=== PATIENT | female | born 1940 | race Caucasian/White ===

== ENCOUNTER 2017-04-26 19:56 | Inpatient (IN) | payer MEDICARE, OTHER ==
[~2017-04-26 19:56] MED LIST: ISOVUE-370 76%-LOCM 1 ML ONE
[2017-04-26] MEDS ORDERED: Ondansetron ODT 4 MG TAB ONE (20:48)
[2017-04-26 21:23] LABS: #Lymphocytes 0.9 thou/uL (1.20-3.40); #Monocytes 0.9 thou/uL (0.11-0.59); #Neutrophils 17.6 thou/uL (1.40-6.50); %Eosinophils 0.1 % (0.0-10.0); %Lymphocytes 4.5 % (21.0-51.0); %Monocytes 4.7 % (0.0-10.0); Hematocrit 39.3 % (36.0-47.0); Mean Platelet Volume 7.2 fL (7.4-10.4); Red Blood Cell (RBC) Count 4.24 mill/uL (4.20-5.40); White Blood Cell (WBC) Count 19.4 thou/uL (4.8-10.8)
--- NOTE | 2017-04-26 21:26 | RAD ---
SINGLE VIEW OF THE CHEST: 04/26/17 COMPARISON: 07/15/12 HISTORY: Fever with decreased appetite and vomiting. FINDINGS: Single view of the chest shows a normal sized cardiomediastinal silhouette. The patient is status po st sternotomy. The pacemaker is unchanged in position. There is no evidence of consolidation, mass, or pleural effusion. IMPRESSION: No evidence of acute cardiopulmonary disease. POS: [facility]
[2017-04-26] MEDS ORDERED: Acetaminophen 500 MG TAB ONE (21:37)
[2017-04-26 21:38] LABS: Lactic Acid - Sepsis 1.7 mmol/L (0.5-2.2)
[2017-04-26 21:43] LABS: ALT (SGPT) 20 U/L (8-55); AST (SGOT) 22 U/L (5-34); Alkaline Phosphatase 69 U/L (40-150); Anion Gap 15 mmol/L (10-20); BUN (Urea Nitrogen) 24 mg/dL (9.8-20.1); Bilirubin, Total 0.5 mg/dL (0.2-1.2); Calc. Creatinine Clearance 0 mL/min (70-130); Calcium 10.1 mg/dL (7.8-10.44); Carbon Dioxide 24 mmol/L (23-31); Chloride 104 mmol/L (98-107); Estimated GFR-MDRD 47; Protein, Total 6.8 g/dL (6.0-8.3)
[2017-04-26 23:10] LABS: Bilirubin Negative (Negative); Blood, Urine Moderate (Negative); Glucose, Urine (Dipstick) Negative (Negative); Ketone, Urine Negative (Negative); Nitrite Negative (Negative); Protein, Urine (Dipstick) Negative (Neg-Trace); Urobilinogen 0.2 mg/dL (0.2-1.0)
[2017-04-26 23:18] LABS: Bacteria/HPF None Seen HPF (None Seen); Hyaline Casts/LPF 4-6 HYALINE CAST LPF (0-3 Hyaline); RBC/HPF GREATER THAN 50-TNTC HPF (0-3)
[2017-04-26] MEDS ORDERED: Sodium Chloride 0.9% 100 ML ONE (23:22)
[2017-04-26] MEDS ORDERED: Piperacillin/Tazobactam 4.5 GM VIAL ONE (23:22)
--- NOTE | 2017-04-27 00:10 | CT ---
CT OF THE ABDOMEN AND PELVIS WITH CONTRAST 04/26/17 COMPARISON: None HISTORY: Fever. [facility] patient. Patient reports the stomach feels empty. TECHNIQUE: Multiple contiguous axial images were obtained in a CT of the abdomen and pelvis with contrast. Lauren nal reformats were performed. FINDINGS: The liver, gallbladder, kidneys, adrenal glands, spleen, and pancreas are unremarkable. No free air, free fluid, or standing changes are seen in the abdomen or pelvis. The patient is status post hysterectomy. There are scattered diverticula in the colon. The small bow el is unremarkable. The appendix is normal. There is a moderate hiatal hernia. No abdominal or pelvi c lymphadenopathy are present. There are large varices in the pelvic region extending from one common femoral vein to the other. Th is suggests thrombus of one of the common femoral veins with collateral flow around the obstruction. The left common iliac vein and external iliac vein are very small in caliber compared to the right. This could be sequela from May-Thurner syndrome. Degenerative changes and postsurgical changes are seen in the spine. The visualized inferior thorax and abdominal wall soft tissues are unremarkable. IMPRESSION: 1. No evidence of acute intra-abdominal/pelvic abnormality. 2. Diverticulosis. 3. Hiatal hernia. 4. 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 This may be secondary to May-Thurner syndrome. POS: [facility]
[2017-04-27] MEDS ORDERED: HumaLOG 300 UNITS/3 ML VIAL SC PRN (02:17)
[2017-04-27] MEDS ORDERED: Dextrose 50% Abboject 50 ML SYRINGE SLOW IVP PRN (02:17)
[2017-04-27] MEDS ORDERED: Dextrose 5% in Water 1,000 ML IV PRN (02:17)
[2017-04-27] MEDS ORDERED: Acetaminophen 325 MG TAB PO PRN (02:17)
[2017-04-27 02:23] VITALS: BMI 28.0
[2017-04-27] MEDS: Sodium Chloride 0.9% 1,000 ML IV SCH (03:55)
[2017-04-27] MEDS: metroNIDAZOLE 500 MG in Premix Bag 1 BAG IVPB SCH ×3 (05:11→23:08)
[2017-04-27] MEDS ORDERED: Pramipexole Di-HCl 0.125 MG TAB PO SCH (06:00)
[2017-04-27 07:01] LABS: Anion Gap 13 mmol/L (10-20); BUN (Urea Nitrogen) 22 mg/dL (9.8-20.1); Calc. Creatinine Clearance 50 mL/min (70-130); Calcium 9.3 mg/dL (7.8-10.44); Carbon Dioxide 24 mmol/L (23-31); Chloride 107 mmol/L (98-107); Estimated GFR-MDRD 51
[2017-04-27 07:15] LABS: #Lymphocytes 1.3 thou/uL (1.20-3.40); #Neutrophils 13.7 thou/uL (1.40-6.50); %Basophils 0.2 % (0.0-1.0); %Eosinophils 0.1 % (0.0-10.0); %Lymphocytes 8.2 % (21.0-51.0); %Monocytes 5.9 % (0.0-10.0); Hematocrit 31.8 % (36.0-47.0); Mean Platelet Volume 8.1 fL (7.4-10.4)
[2017-04-27] MEDS: Famotidine 20 MG TAB PO SCH (08:48)
[2017-04-27] MEDS: Carvedilol 6.25 MG TAB PO SCH ×2 (08:48→18:37)
[2017-04-27] MEDS: Rivaroxaban 10 MG TAB PO SCH (08:54)
--- NOTE | 2017-04-27 10:14 | PDOC.PN ---
- Subjective Encounter Start Date: 04/27/17 Encounter Start Time: 15:00 Subjective: c/o nausea.. - Objective Resuscitation Status: Resuscitation Status FULL:Full Resuscitation Alert, confused, demented. Vital Signs & Weight: Vital Signs (12 hours) Temp Pulse Resp BP BP Pulse Ox 04/27/17 08:48 107/57 L 04/27/17 07:59 98.6 F 74 17 107/52 L 94 L 04/27/17 04:00 97.9 F 83 18 96/47 L 94 L 04/27/17 02:20 96.8 F L 86 20 94 L I&O: 04/26/17 04/27/17 04/28/17 06:59 06:59 06:59 Intake Total 412 Output Total 300 Balance 112 Result Diagrams: 04/27/17 05:54 04/27/17 05:54 Additional Labs: Accuchecks 04/27/17 05:54 POC Glucose 109 Phys Exam - Physical Examination HEENT: PERRLA Neck: no JVD Respiratory: clear to auscultation bilateral Cardiovascular: RRR Gastrointestinal: soft, non-tender Musculoskeletal: no edema Dx/Plan (1) Gastroenteritis Code(s): K52.9 - NONINFECTIVE GASTROENTERITIS AND COLITIS, UNSPECIFIED Status : Acute Plan: On Metronidazole, levaquin. No diarrhea so far today. Follow stools C. dif, cultures... (2) Fever Code(s): R50.9 - FEVER, UNSPECIFIED Status: Acute Plan: continue antibiotics. f/u BxC Comment: Secondary to gastroenteritis. (3) Dementia Code(s): F03.90 - UNSPECIFIED DEMENTIA WITHOUT BEHAVIORAL DISTURBANCE Status: Acute (4) Leucocytosis Code(s): D72.829 - ELEVATED WHITE BLOOD CELL COUNT, UNSPECIFIED Status: Acute Plan: f/u cbc & diff Comment: WBC coming down - Plan continue antibiotics. -: f/u cultures. * .
--- NOTE | 2017-04-27 10:22 | HP ---
PRIMARY CARE PHYSICIAN: Dr. Reyna. CHIEF COMPLAINT: Vomiting, weakness, and confusion. HISTORY OF PRESENT ILLNESS: Ms. Gutierrez is a pleasant 76-year-old female, who was brought in by tere sawant due to generalized weakness, vomiting, and diarrhea, and confusion. The history is taken from t he patient's daughter, who is at the bedside as the patient has some degree of dementia and is unabl e to give me any additional history. Ms. Gutierrez is lives at home with her and on yesterday , they noticed that she had a little bit of diarrhea. There was no blood in the stool. They did no t find this unusual as she sometimes has this off and on; however, the next day she began vomiting a few times. She was having chills. She was extremely weak and having difficulty getting up. She a lso seemed more confused than usual and also had a high fever and a temperature of 102. Her daughte r also says she was complaining of some abdominal discomfort as well and for this reason, she mayo t her to the emergency room. She was found to have a white count of 19.4. CT scan showed no signif icant changes nor did her chest x-ray and she is being admitted for the fever, leukocytosis, and GI symptoms. The patient also has had a decrease in her appetite as well as some congestion, and cough , but otherwise no other complaints. REVIEW OF SYSTEMS: Essentially unobtainable due to the patient's dementia. PAST MEDICAL HISTORY: Significant for hypertension, coronary artery disease, diabetes mellitus, hyp erlipidemia, deep vein thrombosis on Xarelto, as well as dementia. The patient's daughter questions the previous diagnosis of stroke. PAST SURGICAL HISTORY: She has had the bypass surgery 4-vessel, as well as a hysterectomy. ALLERGIES: CODEINE, HYDROCODONE, and STATINS. SOCIAL HISTORY: She is . She had 4 children; one , a son due to kidney failure of unkno wn etiology. She lives at home with her . CODE STATUS: FULL CODE. FAMILY HISTORY: Significant for coronary artery disease in her brother and diabetes as well as kidn ey disease. MEDICATIONS: Include carvedilol 6.25 mg twice a day, Lasix 40 mg twice daily, Tarceva 20 mcg daily, Victoza 18 mcg daily, hydroxyzine 25 mg 1 tablet 2-3 times a day as needed, alprazolam 0.25 mg q.6 hours as needed, enalapril 2.5 mg daily, donepezil 5 mg daily, pramipexole 0.125 mg at bedtime, and Xarelto 20 mg daily. PHYSICAL EXAMINATION: GENERAL: She is alert and oriented. She appears to be in no acute distress and she is very nontoxi c in appearance. She is sitting up, talking and even making some jokes. VITAL SIGNS: Her blood pressure was 144/67, heart rate of 100, respiratory rate of 18, temperature was 102.6. HEENT: Pupils are equal, round, and reactive. Extraocular muscles are intact. Her sclerae are ani cteric. Throat: There is no erythema, no exudates. NECK: No adenopathy, no bruits. LUNGS: Clear to auscultation. There was no wheezing, no rales. CARDIOVASCULAR: She has a normal S1 and S2. There is no S3 or S4. No murmurs, clicks, no rubs. ABDOMEN: Soft, obese. There is some mild left quadrant as well as mid abdominal discomfort, but ve ry mild. No rebound or guarding. EXTREMITIES: There is no edema. She did have some mild erythema in the left lower extremity as wel l as a little bit of warmth. NEUROLOGIC: The exam is nonfocal. LABORATORY RESULTS: White blood cell count is 19.4, hemoglobin 13.2, hematocrit is 39.3, platelet c ount is 139. Sodium 139, potassium 4.0, chloride is 104, CO2 is 24, BUN of 24, creatinine 1.13, glu cose is 115. Urinalysis was significant for moderate blood and greater than 50 rbc's per high power field, no bacteria were seen, nitrite negative. ASSESSMENT AND PLAN: This is a 76-year-old female that presents with diarrhea and vomiting as well as some mild abdominal pain. She also has a leukocytosis and fever. I suspect this is an infectiou s gastroenteritis. She appears nontoxic. She is sitting up, smiling on the stretcher and talkative , I suspect talking on the stretcher. She will be admitted and started on IV fluids as well as cipr ofloxacin and Flagyl. Cultures were done in the emergency room and I suspect that her symptoms shou ld resolve within the next 24 to 48 hours and hopefully she can be discharged home. We will follow up on culture. Continue her Xarelto for her deep vein thrombosis. However, we will be holding enal cindy and her Lasix due to some mild acute kidney injury and we will be placing her on the sliding s kajal for her diabetes.
[2017-04-27] MEDS ORDERED: Milk Of Magnesia 30 ML UDCUP PO PRN (10:46)
[2017-04-27] MEDS: Lorazepam 0.5 MG TAB PO PRN ×2 (19:40→23:59)
[2017-04-27] MEDS: Pramipexole Di-HCl 0.125 MG TAB PO SCH (23:08)
[2017-04-28] MEDS: Sodium Chloride 0.9% 1,000 ML IV SCH ×3 (00:08→21:03)
[2017-04-28 05:33] LABS: #Eosinphils 0.1 thou/uL (0.0-0.7); #Lymphocytes 1.5 thou/uL (1.20-3.40); #Monocytes 0.7 thou/uL (0.11-0.59); #Neutrophils 5.4 thou/uL (1.40-6.50); %Basophils 0.5 % (0.0-1.0); %Eosinophils 1.8 % (0.0-10.0); %Lymphocytes 19.7 % (21.0-51.0); %Monocytes 8.6 % (0.0-10.0); Hematocrit 33.3 % (36.0-47.0); Mean Platelet Volume 7.9 fL (7.4-10.4); Red Blood Cell (RBC) Count 3.49 mill/uL (4.20-5.40); White Blood Cell (WBC) Count 7.8 thou/uL (4.8-10.8)
[2017-04-28] MEDS: metroNIDAZOLE 500 MG in Premix Bag 1 BAG IVPB SCH ×3 (06:32→20:59)
[2017-04-28] MEDS: Lorazepam 0.5 MG TAB PO PRN ×3 (06:33→20:57)
[2017-04-28] MEDS: Famotidine 20 MG TAB PO SCH (09:20)
[2017-04-28] MEDS: Carvedilol 6.25 MG TAB PO SCH ×2 (09:20→16:22)
[2017-04-28] MEDS: Rivaroxaban 10 MG TAB PO SCH (10:04)
--- NOTE | 2017-04-28 12:59 | PDOC.PN ---
- Subjective Encounter Start Date: 04/28/17 Encounter Start Time: 08:00 Pt seen for followup re: diarrhea. Reports ongoing diarrhea. No nausea, vomiting or fevers. - Objective Resuscitation Status: Resuscitation Status FULL:Full Resuscitation MAR Reviewed: Yes Vital Signs & Weight: Vital Signs (12 hours) Temp Pulse Resp BP BP BP Pulse Ox 04/28/17 11:30 98.1 F 80 20 127/58 L 94 L 04/28/17 10:14 98.4 F 75 20 96 04/28/17 09:20 131/58 L 04/28/17 09:16 98.4 F 75 20 131/58 L 96 04/28/17 07:45 98.0 F 78 18 124/58 L 95 04/28/17 04:00 97.2 F L 74 18 133/61 94 L I&O: 04/27/17 04/28/17 04/29/17 06:59 06:59 06:59 Intake Total 412 1374 2358 Output Total 300 1656 Balance 112 1374 702 Result Diagrams: 04/28/17 04:32 04/27/17 05:54 Additional Labs: Accuchecks 04/28/17 04/28/17 04/28/17 11:11 09:55 06:22 POC Glucose 165 H 122 H 230 H 04/28/17 04/27/17 04/27/17 01:13 20:51 15:55 POC Glucose 122 H 153 H 123 H Phys Exam - Physical Examination Constitutional: NAD HEENT: moist MMs, oral pharynx no lesions Neck: supple Respiratory: no wheezing, no rales, no rhonchi, clear to auscultation bilateral Cardiovascular: RRR, no rub Gastrointestinal: soft, positive bowel sounds Musculoskeletal: pulses present Neurological: moves all 4 limbs Psychiatric: normal affect Skin: no rash Dx/Plan (1) Gastroenteritis Code(s): K52.9 - NONINFECTIVE GASTROENTERITIS AND COLITIS, UNSPECIFIED Status : Acute (2) Dementia Code(s): F03.90 - UNSPECIFIED DEMENTIA WITHOUT BEHAVIORAL DISTURBANCE Status: Chronic (3) CAD (coronary artery disease) Code(s): I25.10 - ATHSCL HEART DISEASE OF [place] CORONARY ARTERY W/O ANG PCTRS Status: Chronic (4) HTN (hypertension) Code(s): I10 - ESSENTIAL (PRIMARY) HYPERTENSION Status: Chronic (5) DM2 (diabetes mellitus, type 2) Status: Chronic (6) Dyslipidemia Code(s): E78.5 - HYPERLIPIDEMIA, UNSPECIFIED Status: Chronic (7) DVT (deep venous thrombosis) Code(s): I82.409 - ACUTE EMBOLISM AND THOMBOS UNSP DEEP VN UNSP LOWER EXTREMITY Status: Chronic - Plan plan discussed w/ family, continue antibiotics, PT/OT, out of bed/ambulate * . Continue IV ciprofloxacin, Flagyl Await stool studies. Continue anticoagulation for DVT. Monitor vital signs, titrate antihypertensives as needed. Review of Systems - Review of Systems Constitutional: negative: Fever, Chills, Sweats, Weakness, Malaise Respiratory: negative: Cough, Dry, Shortness of Breath, Hemoptysis, SOB with Excertion, Pleuritic Pain, Sputum, Wheezing Cardiovascular: negative: Chest Pain, Palpitations, Orthopnea, Paroxysmal Noc. Dyspnea, Edema, Light Headedness Gastrointestinal: Diarrhea. negative: Nausea, Vomiting, Abdominal Pain, Constipation, Melena, Hematochezia Genitourinary: negative: Dysuria, Frequency, Incontinence, Hematuria, Retention - Medications/Allergies Allergies/Adverse Reactions: Allergies Allergy/AdvReac Type Severity Reaction Status Date / Time codeine Allergy Verified 04/27/17 03:14 hydrocodone [Hydrocodone] Allergy Verified 04/27/17 03:14 lidocaine Allergy Verified 04/27/17 03:14 Bupqeqx-Ivx-Cpf Reductase Allergy Verified 02/18/13 18:23 Inhibitor tramadol Allergy Verified 04/27/17 03:14 Medications: Current Medications Acetaminophen (Tylenol) 650 mg PO Q4H PRN PRN Reason: Headache/Fever or Pain Al Hydroxide/Mg Hydroxide (Maalox) 30 ml PO Q6H PRN PRN Reason: Heartburn or Indigestion Carvedilol (Coreg) 6.25 mg PO BID-[facility] Last Admin: 04/28/17 09:20 Dose: 6.25 mg Dextrose/Water (Dextrose 50%) 25 gm SLOW IVP PRN PRN PRN Reason: Hypoglycemia Famotidine (Pepcid) 20 mg PO DAILY [facility] Last Admin: 04/28/17 09:20 Dose: 20 mg Glucagon (Glucagon) 1 mg IM PRN PRN PRN Reason: Hypoglycemia Ciprofloxacin/Dextrose 400 mg/ (Device) 200 mls @ 200 mls/hr IVPB Q12HR [facility] Last Admin: 04/28/17 09:25 Dose: 200 mls Dextrose/Water (D5w) 1,000 mls @ 0 mls/hr IV .Q0M PRN; As Directed PRN Reason: Hypoglycemia Sodium Chloride (Normal Saline 0.9%) 1,000 mls @ 75 mls/hr IV .[id number] [facility] Last Admin: 04/28/17 09:12 Dose: Not Given Metronidazole 500 mg/ Device 100 mls @ 100 mls/hr IVPB Q8HR [facility] Last Admin: 04/28/17 06:32 Dose: 100 mls Insulin Human Lispro (Humalog) 0 units SC .MODERATE SLIDING SC PRN PRN Reason: Moderate Correctional Scale Insulin Human Lispro (Humalog) 0 units SC .BEDTIME SLIDING SC PRN PRN Reason: Bedtime Correctional Scale Lorazepam (Ativan) 0.25 mg PO Q4H PRN PRN Reason: Anxiety Last Admin: 04/28/17 06:33 Dose: 0.25 mg Magnesium Hydroxide (Milk Of Magnesium) 30 ml PO DAILYPRN PRN PRN Reason: Constipation Pramipexole Dihydrochloride (Mirapex) 0.125 mg PO HS [facility] Last Admin: 04/27/17 23:08 Dose: 0.125 mg Rivaroxaban (Xarelto) 20 mg PO DAILY [facility] Last Admin: 04/28/17 10:04 Dose: 20 mg Sodium Chloride (Flush - Normal Saline) 10 ml IVF Q12HR [facility] Last Admin: 04/28/17 09:20 Dose: 10 ml Sodium Chloride (Flush - Normal Saline) 10 ml IVF PRN PRN PRN Reason: Saline Flush
[2017-04-28] MEDS: HumaLOG 300 UNITS/3 ML VIAL SC PRN (16:20)
[2017-04-28] MEDS: Pramipexole Di-HCl 0.125 MG TAB PO SCH (20:58)
[2017-04-28] MEDS ORDERED: Lorazepam 2 MG/ML VIAL SLOW IVP SCH (23:30)
[2017-04-29] MEDS ORDERED: diphenhydrAMINE HCl 25 MG CAP PO SCH (02:15)
[2017-04-29] MEDS ORDERED: Ondansetron HCl/PF 4 MG/2 ML Vial IVP PRN (02:20)
[2017-04-29] MEDS: metroNIDAZOLE 500 MG in Premix Bag 1 BAG IVPB SCH ×3 (06:03→21:20)
[2017-04-29] MEDS: Famotidine 20 MG TAB PO SCH (08:20)
[2017-04-29] MEDS: Carvedilol 6.25 MG TAB PO SCH ×2 (08:20→16:27)
[2017-04-29] MEDS: Rivaroxaban 10 MG TAB PO SCH (08:21)
[2017-04-29] MEDS ORDERED: Loperamide HCl 2 MG CAP PO PRN (09:23)
--- NOTE | 2017-04-29 09:28 | PDOC.PN ---
- Subjective Encounter Start Date: 04/29/17 Encounter Start Time: 07:00 Pt seen for followup re: gastroenteritis. Has diarrhea. No chest pain, shortness of breath, fever or chills. No vomiting. - Objective Resuscitation Status: Resuscitation Status FULL:Full Resuscitation MAR Reviewed: Yes Vital Signs & Weight: Vital Signs (12 hours) Temp Pulse Resp BP BP 04/29/17 08:20 132/66 04/29/17 03:39 98.1 F 74 18 130/60 I&O: 04/28/17 04/29/17 04/30/17 06:59 06:59 06:59 Intake Total 1374 3688 Output Total 1656 Balance 1374 2 Result Diagrams: 04/28/17 04:32 04/27/17 05:54 Additional Labs: Accuchecks 04/28/17 04/28/17 04/28/17 16:13 11:11 09:55 POC Glucose 207 H 165 H 122 H 04/28/17 06:22 POC Glucose 230 H Phys Exam - Physical Examination Constitutional: NAD HEENT: moist MMs, oral pharynx no lesions Neck: supple, full ROM Respiratory: no wheezing, no rales, no rhonchi, clear to auscultation bilateral Cardiovascular: RRR Gastrointestinal: soft, non-tender, positive bowel sounds Neurological: moves all 4 limbs Psychiatric: normal affect Dx/Plan (1) Gastroenteritis Code(s): K52.9 - NONINFECTIVE GASTROENTERITIS AND COLITIS, UNSPECIFIED Status : Acute (2) Dementia Code(s): F03.90 - UNSPECIFIED DEMENTIA WITHOUT BEHAVIORAL DISTURBANCE Status: Chronic (3) CAD (coronary artery disease) Code(s): I25.10 - ATHSCL HEART DISEASE OF [place] CORONARY ARTERY W/O ANG PCTRS Status: Chronic (4) HTN (hypertension) Code(s): I10 - ESSENTIAL (PRIMARY) HYPERTENSION Status: Chronic (5) DM2 (diabetes mellitus, type 2) Status: Chronic (6) Dyslipidemia Code(s): E78.5 - HYPERLIPIDEMIA, UNSPECIFIED Status: Chronic (7) DVT (deep venous thrombosis) Code(s): I82.409 - ACUTE EMBOLISM AND THOMBOS UNSP DEEP VN UNSP LOWER EXTREMITY Status: Chronic - Plan continue antibiotics * . C. diff negative. Start Imodium. Mobilize patient. Likely home 1-2 days. Review of Systems - Review of Systems Constitutional: Weakness. negative: Fever, Chills, Sweats, Malaise Respiratory: negative: Cough, Dry, Shortness of Breath, Hemoptysis, SOB with Excertion, Pleuritic Pain, Sputum, Wheezing Cardiovascular: negative: Chest Pain, Palpitations, Orthopnea, Paroxysmal Noc. Dyspnea, Edema, Light Headedness Gastrointestinal: Diarrhea. negative: Nausea, Vomiting, Abdominal Pain, Constipation - Medications/Allergies Allergies/Adverse Reactions: Allergies Allergy/AdvReac Type Severity Reaction Status Date / Time codeine Allergy Verified 04/27/17 03:14 hydrocodone [Hydrocodone] Allergy Verified 04/27/17 03:14 lidocaine Allergy Verified 04/27/17 03:14 Bjifomb-Cpb-Qbl Reductase Allergy Verified 02/18/13 18:23 Inhibitor tramadol Allergy Verified 04/27/17 03:14 Medications: Current Medications Acetaminophen (Tylenol) 650 mg PO Q4H PRN PRN Reason: Headache/Fever or Pain Al Hydroxide/Mg Hydroxide (Maalox) 30 ml PO Q6H PRN PRN Reason: Heartburn or Indigestion Carvedilol (Coreg) 6.25 mg [facility]ID[facility] Last Admin: 04/29/17 08:20 Dose: 6.25 mg Dextrose/Water (Dextrose 50%) 25 gm SLOW IVP PRN PRN PRN Reason: Hypoglycemia Famotidine (Pepcid) 20 mg PO DAILY [facility] Last Admin: 04/29/17 08:20 Dose: 20 mg Glucagon (Glucagon) 1 mg IM PRN PRN PRN Reason: Hypoglycemia Ciprofloxacin/Dextrose 400 mg/ (Device) 200 mls @ 200 mls/hr IVPB Q12HR [facility] Last Admin: 04/29/17 08:17 Dose: 200 mls Dextrose/Water (D5w) 1,000 mls @ 0 mls/hr IV .Q0M PRN; As Directed PRN Reason: Hypoglycemia Sodium Chloride (Normal Saline 0.9%) 1,000 mls @ 75 mls/hr IV .[id number] [facility] Last Admin: 04/28/17 21:03 Dose: 1,000 mls Metronidazole 500 mg/ Device 100 mls @ 100 mls/hr IVPB Q8HR [facility] Last Admin: 04/29/17 06:03 Dose: 100 mls Insulin Human Lispro (Humalog) 0 units SC .MODERATE SLIDING SC PRN PRN Reason: Moderate Correctional Scale Last Admin: 04/28/17 16:20 Dose: 4 unit Insulin Human Lispro (Humalog) 0 units SC .BEDTIME SLIDING SC PRN PRN Reason: Bedtime Correctional Scale Loperamide HCl (Imodium) 2 mg PO PRN PRN PRN Reason: Diarrhea/Loose Stools Loperamide HCl (Imodium) 4 mg PO ONE [facility] Lorazepam (Ativan) 0.25 mg PO Q4H PRN PRN Reason: Anxiety Last Admin: 04/28/17 20:57 Dose: 0.25 mg Magnesium Hydroxide (Milk Of Magnesium) 30 ml PO DAILYPRN PRN PRN Reason: Constipation Ondansetron HCl (Zofran) 4 mg IVP Q6H PRN PRN Reason: Nausea/Vomiting Pramipexole Dihydrochloride (Mirapex) 0.125 mg PO HS [facility] Last Admin: 04/28/17 20:58 Dose: 0.125 mg Rivaroxaban (Xarelto) 20 mg PO DAILY [facility] Last Admin: 04/29/17 08:21 Dose: 20 mg Sodium Chloride (Flush - Normal Saline) 10 ml IVF Q12HR [facility] Last Admin: 04/29/17 08:21 Dose: 10 ml Sodium Chloride (Flush - Normal Saline) 10 ml IVF PRN PRN PRN Reason: Saline Flush
[2017-04-29] MEDS ORDERED: Loperamide HCl 2 MG CAP PO SCH (09:30)
[2017-04-29] MEDS: Lorazepam 0.5 MG TAB PO PRN ×3 (11:33→21:13)
[2017-04-29] MEDS: Sodium Chloride 0.9% 1,000 ML IV SCH (13:59)
[2017-04-29] MEDS: Mag-Al 1200 mg/1200 mg/30 ML UDCUP PO PRN (15:01)
[2017-04-29] MEDS: HumaLOG 300 UNITS/3 ML VIAL SC PRN (16:08)
[2017-04-29] MEDS ORDERED: hydrOXYzine 25 MG TAB PO PRN (16:14)
[2017-04-29 17:23] LABS: Iron 49 ug/dL (50-170)
[2017-04-29] MEDS: Pramipexole Di-HCl 0.125 MG TAB PO SCH (21:11)
[2017-04-30] MEDS: Lorazepam 0.5 MG TAB PO PRN ×3 (03:08→20:52)
[2017-04-30] MEDS ORDERED: Cepastat Lozenges 1 LOZ PO PRN (04:54)
[2017-04-30] MEDS: Sodium Chloride 0.9% 1,000 ML IV SCH ×2 (05:09→18:32)
[2017-04-30] MEDS: metroNIDAZOLE 500 MG in Premix Bag 1 BAG IVPB SCH (05:46)
[2017-04-30 06:01] LABS: #Eosinphils 0.1 thou/uL (0.0-0.7); #Lymphocytes 1.4 thou/uL (1.20-3.40); #Monocytes 0.5 thou/uL (0.11-0.59); #Neutrophils 3.4 thou/uL (1.40-6.50); %Basophils 0.6 % (0.0-1.0); %Eosinophils 2.7 % (0.0-10.0); %Lymphocytes 24.8 % (21.0-51.0); %Monocytes 9.9 % (0.0-10.0); Hematocrit 32.5 % (36.0-47.0); Mean Platelet Volume 7.2 fL (7.4-10.4); Red Blood Cell (RBC) Count 3.47 mill/uL (4.20-5.40); White Blood Cell (WBC) Count 5.5 thou/uL (4.8-10.8)
[2017-04-30 06:17] LABS: Anion Gap 10 mmol/L (10-20); BUN (Urea Nitrogen) 5 mg/dL (9.8-20.1); Calc. Creatinine Clearance 69 mL/min (70-130); Calcium 8.8 mg/dL (7.8-10.44); Carbon Dioxide 22 mmol/L (23-31); Chloride 112 mmol/L (98-107); Estimated GFR-MDRD 74
[2017-04-30] MEDS ORDERED: SODIUM CHLORIDE IVPB SCH (08:30)
[2017-04-30] MEDS ORDERED: SODIUM FERRIC GLUCONATE IVPB SCH (08:30)
[2017-04-30] MEDS ORDERED: ADMIXTURE FEE IVPB SCH (08:30)
[2017-04-30] MEDS: Famotidine 20 MG TAB PO SCH (08:45)
[2017-04-30] MEDS: Carvedilol 6.25 MG TAB PO SCH ×2 (08:45→20:49)
[2017-04-30] MEDS: Rivaroxaban 10 MG TAB PO SCH (08:54)
[2017-04-30] MEDS ORDERED: Ibuprofen 600 MG TAB PO PRN (09:31)
[2017-04-30] MEDS ORDERED: hydrOXYzine 25 MG TAB PO PRN (09:31)
[2017-04-30] MEDS ORDERED: Furosemide 40 MG/4 ML VIAL SLOW IVP SCH (09:45)
--- NOTE | 2017-04-30 10:00 | PDOC.PN ---
- Subjective Encounter Start Date: 04/30/17 Encounter Start Time: 07:00 Pt seen for followup re: diarrhea. Denies chest pain, shortness of breath, fever or chills. Last loose BM yesterday. - Objective Resuscitation Status: Resuscitation Status FULL:Full Resuscitation MAR Reviewed: Yes Vital Signs & Weight: Vital Signs (12 hours) Temp Pulse Resp BP Pulse Ox 04/30/17 08:45 164/72 H 04/30/17 08:00 98.4 F 62 20 92 L 04/30/17 03:28 95 I&O: 04/29/17 04/30/17 05/01/17 06:59 06:59 06:59 Intake Total 3688 3255 Output Total 1656 Balance 2031 3255 Result Diagrams: 04/30/17 05:44 04/30/17 05:44 Additional Labs: Accuchecks 04/30/17 04/29/17 04/29/17 05:42 20:34 15:58 POC Glucose 127 H 118 H 297 H 04/29/17 11:29 POC Glucose 152 H Phys Exam - Physical Examination Constitutional: NAD HEENT: moist MMs, oral pharynx no lesions Neck: supple Respiratory: no wheezing, no rales, no rhonchi, clear to auscultation bilateral Cardiovascular: RRR Gastrointestinal: soft, non-tender, positive bowel sounds Musculoskeletal: pulses present, edema present Neurological: moves all 4 limbs Psychiatric: normal affect Dx/Plan (1) Gastroenteritis Code(s): K52.9 - NONINFECTIVE GASTROENTERITIS AND COLITIS, UNSPECIFIED Status : Resolved (2) Iron deficiency Code(s): E61.1 - IRON DEFICIENCY Status: Acute (3) Leg edema Code(s): R60.0 - LOCALIZED EDEMA Status: Acute (4) Dementia Code(s): F03.90 - UNSPECIFIED DEMENTIA WITHOUT BEHAVIORAL DISTURBANCE Status: Chronic (5) CAD (coronary artery disease) Code(s): I25.10 - ATHSCL HEART DISEASE OF [place] CORONARY ARTERY W/O ANG PCTRS Status: Chronic (6) HTN (hypertension) Code(s): I10 - ESSENTIAL (PRIMARY) HYPERTENSION Status: Chronic (7) DM2 (diabetes mellitus, type 2) Status: Chronic (8) Dyslipidemia Code(s): E78.5 - HYPERLIPIDEMIA, UNSPECIFIED Status: Chronic (9) DVT (deep venous thrombosis) Code(s): I82.409 - ACUTE EMBOLISM AND THOMBOS UNSP DEEP VN UNSP LOWER EXTREMITY Status: Chronic (10) Sepsis Code(s): A41.9 - SEPSIS, UNSPECIFIED ORGANISM Status: Resolved Comment: due to suspected viral gastroenteritis - Plan * . Discontinue antibiotics, observe. Discontinue IV fluids, give furosemide. IV iron today, followed by oral iron. Likely home 1-2 days. Review of Systems - Review of Systems Constitutional: negative: Fever, Chills, Sweats, Weakness, Malaise Cardiovascular: negative: Chest Pain, Palpitations, Orthopnea, Paroxysmal Noc. Dyspnea, Edema, Light Headedness Gastrointestinal: negative: Nausea, Vomiting, Abdominal Pain, Diarrhea, Constipation, Melena, Hematochezia - Medications/Allergies Allergies/Adverse Reactions: Allergies Allergy/AdvReac Type Severity Reaction Status Date / Time codeine Allergy Verified 04/27/17 03:14 hydrocodone [Hydrocodone] Allergy Verified 04/27/17 03:14 lidocaine Allergy Verified 04/27/17 03:14 Aqtygzq-Zvm-Uwh Reductase Allergy Verified 02/18/13 18:23 Inhibitor tramadol Allergy Verified 04/27/17 03:14 Medications: Current Medications Acetaminophen (Tylenol) 650 mg PO Q4H PRN PRN Reason: Headache/Fever or Pain Al Hydroxide/Mg Hydroxide (Maalox) 30 ml PO Q6H PRN PRN Reason: Heartburn or Indigestion Last Admin: 04/29/17 15:01 Dose: 30 ml Alprazolam (Xanax) 0.25 mg PO Q6H PRN PRN Reason: Anxiety Carvedilol (Coreg) 6.25 mg PO BID [facility] Dextrose/Water (Dextrose 50%) 25 gm SLOW IVP PRN PRN PRN Reason: Hypoglycemia Donepezil HCl (Aricept) 5 mg PO DAILY [facility] Enalapril Maleate (Vasotec) 2.5 mg PO DAILY [facility] Famotidine (Pepcid) 20 mg PO DAILY [facility] Last Admin: 04/30/17 08:45 Dose: 20 mg Furosemide (Lasix) 40 mg PO BID [facility] Furosemide (Lasix) 40 mg SLOW IVP 0945 [facility] Stop: 04/30/17 12:00 Glucagon (Glucagon) 1 mg IM PRN PRN PRN Reason: Hypoglycemia Hydroxyzine HCl (Atarax) 25 mg PO TIDPRN PRN PRN Reason: .ITCHING/ALERGIES Last Admin: 04/30/17 03:55 Dose: 25 mg Hydroxyzine Pamoate (Vistaril) 25 mg PO TID [facility] Sodium Chloride (Normal Saline 0.9%) 1,000 mls @ 75 mls/hr IV .[id number] [facility] Last Admin: 04/30/17 05:09 Dose: 1,000 mls Ferric Sodium Gluconate Complex 250 mg/ Miscellaneous Medication 1 each/ Sodium Chloride 120 mls @ 1.7 mls/min IVPB NOW [facility] Stop: 04/30/17 12:00 Last Admin: 04/30/17 08:54 Dose: 120 mls Ibuprofen (Motrin) 600 mg PO Q6H PRN PRN Reason: Pain Insulin Human Lispro (Humalog) 0 units SC .MODERATE SLIDING SC PRN PRN Reason: Moderate Correctional Scale Last Admin: 04/29/17 16:08 Dose: 6 unit Insulin Human Lispro (Humalog) 0 units SC .BEDTIME SLIDING SC PRN PRN Reason: Bedtime Correctional Scale Loperamide HCl (Imodium) 2 mg PO PRN PRN PRN Reason: Diarrhea/Loose Stools Lorazepam (Ativan) 0.25 mg PO Q4H PRN PRN Reason: Anxiety Last Admin: 04/30/17 03:08 Dose: 0.25 mg Magnesium Hydroxide (Milk Of Magnesium) 30 ml PO DAILYPRN PRN PRN Reason: Constipation Ondansetron HCl (Zofran) 4 mg IVP Q6H PRN PRN Reason: Nausea/Vomiting (Insulin Degludec [ Tresiba Flextouch U- 200] 44 Units) Hm Med 0 each SC DAILY [facility] (Liraglutide [ Victoza 2-Darrell] 1.2 Units) Hm Med 0 each SC DAILY [facility] Pramipexole Dihydrochloride (Mirapex) 0.125 mg PO HS [facility] Rivaroxaban (Xarelto) 20 mg PO DAILY [facility] Last Admin: 04/30/17 08:54 Dose: 20 mg Sodium Chloride (Flush - Normal Saline) 10 ml IVF Q12HR [facility] Last Admin: 04/30/17 08:50 Dose: 10 ml Sodium Chloride (Flush - Normal Saline) 10 ml IVF PRN PRN PRN Reason: Saline Flush Throat Lozenges (Cepastat Lozenges) 1 luisito PO PRN PRN PRN Reason: Cough
[2017-04-30] MEDS: HumaLOG 300 UNITS/3 ML VIAL SC PRN ×2 (13:52→16:06)
--- NOTE | 2017-04-30 15:39 | PQF ---
CLINICAL DOCUMENTATION IMPROVEMENT CLARIFICATION FORM: ICD-10 Updated PLEASE DO AN ADDENDUM TO THE PROGRESS NOTE WITH ANY DOCUMENTATION UPDATES OR ADDITIONS AND CARRY THROUGH TO DC SUMMARY. THANK YOU. DATE: 04/30/17 ATTN: Dr. De Leon Please exercise your independent, professional judgment in responding to the clarification form. Clinical indicators are provided on the bottom of this form for your review Please check appropriate box(s): [ X ] Sepsis due to: (Pna, UTI, gangrenous gall bladder, etc.) __ gastroenteritis [ ] SIRS due to non-infectious process (please specify etiology) [ ] with organ dysfunction [ ] without organ dysfunction [ ] Severe sepsis with acute organ dysfunction of: (Examples: respiratory failure, encephalopathy, acute kidney failure, other) [ ] Other diagnosis [ ] Unable to determine The following CLINICAL INDICATORS - SIGNS / SYMPTOMS are present in the medical record: ER RECORD: SEPSIS, UNKNOWN SOURCE H&P: MORE CONFUSED THAN USUAL & ALSO HAD A HIGH FEVER & TEMP OF 102 WHITE COUNT OF 19.4 HOLDING ENALAPRIL & HER LASIX D/T SOME MILD ACUTE KIDNEY INJURY. PN 04/29: NONINFECTIVE GASTROENTERITIS & COLITIS, UNSPECIFIED. ACUTE. C DIFF NEGATIVE RISKS: H&P: HX OF HTN, CAD, DM, DEMENTIA. DVT ON XARELTO TREATMENT: CPOE 04/27: IV FLAGYL. DC'D 04/30. CPOE 04/27: IV CIPROFLOXACIN. DC'D 04/30 (This form is maintained as a part of the permanent medical record) 2014 [employer] All Rights Reserved Sheridan Stearns RN, BSN [email or web address] Office: [phone] [facility]
[2017-04-30] MEDS: ALPRAZolam 0.5 MG TAB PO PRN ×2 (16:06→23:14)
[2017-04-30] MEDS: hydrOXYzine Pamoate 25 mg Capsule PO SCH ×2 (16:28→20:49)
[2017-04-30] MEDS: Mag-Al 1200 mg/1200 mg/30 ML UDCUP PO PRN (19:11)
[2017-04-30] MEDS: Furosemide 40 MG TAB PO SCH (19:13)
[2017-04-30] MEDS ORDERED: Pramipexole Di-HCl 0.125 MG TAB PO SCH (21:00)
[2017-05-01] MEDS: Lorazepam 0.5 MG TAB PO PRN (00:36)
[2017-05-01 06:24] LABS: #Eosinphils 0.1 thou/uL (0.0-0.7); #Lymphocytes 1.5 thou/uL (1.20-3.40); #Monocytes 0.8 thou/uL (0.11-0.59); #Neutrophils 4.2 thou/uL (1.40-6.50); %Basophils 0.3 % (0.0-1.0); %Eosinophils 2.2 % (0.0-10.0); %Lymphocytes 22.9 % (21.0-51.0); %Monocytes 11.5 % (0.0-10.0); Hematocrit 32.6 % (36.0-47.0); Mean Platelet Volume 6.8 fL (7.4-10.4); Red Blood Cell (RBC) Count 3.51 mill/uL (4.20-5.40); White Blood Cell (WBC) Count 6.7 thou/uL (4.8-10.8)
[2017-05-01 06:41] LABS: Anion Gap 9 mmol/L (10-20); BUN (Urea Nitrogen) 6 mg/dL (9.8-20.1); Calc. Creatinine Clearance 66 mL/min (70-130); Calcium 8.9 mg/dL (7.8-10.44); Carbon Dioxide 26 mmol/L (23-31); Chloride 107 mmol/L (98-107); Estimated GFR-MDRD 69
[2017-05-01] MEDS ORDERED: Ferrous Fumarate 324 MG TAB PO SCH (08:00)
[2017-05-01 08:21] VITALS: TEMP 97.3
[2017-05-01] MEDS: hydrOXYzine Pamoate 25 mg Capsule PO SCH (08:21)
[2017-05-01] MEDS: Rivaroxaban 10 MG TAB PO SCH (08:21)
[2017-05-01] MEDS: Carvedilol 6.25 MG TAB PO SCH (08:22)
[2017-05-01] MEDS: Famotidine 20 MG TAB PO SCH (08:22)
[2017-05-01] MEDS: Furosemide 40 MG TAB PO SCH (08:22)
[2017-05-01 08:23] VITALS: BP 140/62
[2017-05-01] MEDS ORDERED: LIRAGLUTIDE SC SCH (09:00)
[2017-05-01] MEDS ORDERED: INSULIN DEGLUDEC SC SCH (09:00)
[2017-05-01] MEDS ORDERED: Donepezil HCl 5 MG TAB PO SCH (09:00)
[2017-05-01] MEDS ORDERED: Non-Formulary Item 1 EACH (Rivaroxaban [Xarelto] 1 TAB) PO SCH (09:00)
--- NOTE | 2017-05-01 10:12 | PDOC.PN ---
- Subjective Encounter Start Date: 05/01/17 Encounter Start Time: 07:00 Pt seen for followup re: cellulitis. Sleepy, denies chest pain, shortness of breath, fevers or chills. - Objective Resuscitation Status: Resuscitation Status FULL:Full Resuscitation Vital Signs & Weight: Vital Signs (12 hours) Temp Pulse Resp BP Pulse Ox 05/01/17 08:22 140/62 95 05/01/17 07:35 97.3 F L 60 18 I&O: 04/30/17 05/01/17 05/02/17 06:59 06:59 06:59 Intake Total 3255 1025 Balance 3255 1025 Result Diagrams: 05/01/17 06:13 05/01/17 06:13 Additional Labs: Accuchecks 05/01/17 04/30/17 04/30/17 06:12 21:18 16:04 POC Glucose 129 H 218 H 193 H 04/30/17 11:21 POC Glucose 224 H Phys Exam - Physical Examination Constitutional: NAD HEENT: moist MMs, oral pharynx no lesions Neck: supple Respiratory: no wheezing, no rales, no rhonchi, clear to auscultation bilateral Cardiovascular: RRR Gastrointestinal: soft Neurological: moves all 4 limbs Psychiatric: normal affect Deviation from normal: L leg erythema, mild warmth Dx/Plan (1) Cellulitis Code(s): L03.90 - CELLULITIS, UNSPECIFIED Status: Acute (2) Iron deficiency Code(s): E61.1 - IRON DEFICIENCY Status: Acute (3) Leg edema Code(s): R60.0 - LOCALIZED EDEMA Status: Acute (4) Dementia Code(s): F03.90 - UNSPECIFIED DEMENTIA WITHOUT BEHAVIORAL DISTURBANCE Status: Chronic (5) CAD (coronary artery disease) Code(s): I25.10 - ATHSCL HEART DISEASE OF [place] CORONARY ARTERY W/O ANG PCTRS Status: Chronic (6) HTN (hypertension) Code(s): I10 - ESSENTIAL (PRIMARY) HYPERTENSION Status: Chronic (7) DM2 (diabetes mellitus, type 2) Status: Chronic (8) Dyslipidemia Code(s): E78.5 - HYPERLIPIDEMIA, UNSPECIFIED Status: Chronic (9) DVT (deep venous thrombosis) Code(s): I82.409 - ACUTE EMBOLISM AND THOMBOS UNSP DEEP VN UNSP LOWER EXTREMITY Status: Chronic (10) Sepsis Code(s): A41.9 - SEPSIS, UNSPECIFIED ORGANISM Status: Resolved Comment: due to suspected viral gastroenteritis (11) Gastroenteritis Code(s): K52.9 - NONINFECTIVE GASTROENTERITIS AND COLITIS, UNSPECIFIED Status : Resolved - Plan * . Start Septra DS for suspected cellulitis. Gastroenteritis has resolved. Likelty home later today or tomorrow. Review of Systems - Review of Systems Respiratory: negative: Cough, Dry, Shortness of Breath, Hemoptysis, SOB with Excertion, Pleuritic Pain, Sputum, Wheezing Cardiovascular: negative: Chest Pain, Palpitations, Orthopnea, Paroxysmal Noc. Dyspnea, Edema, Light Headedness Gastrointestinal: negative: Nausea, Vomiting, Abdominal Pain, Diarrhea, Constipation, Melena, Hematochezia Skin: Rash - Medications/Allergies Allergies/Adverse Reactions: Allergies Allergy/AdvReac Type Severity Reaction Status Date / Time codeine Allergy Verified 04/27/17 03:14 hydrocodone [Hydrocodone] Allergy Verified 04/27/17 03:14 lidocaine Allergy Verified 04/27/17 03:14 Hwxedkq-Eej-Ods Reductase Allergy Verified 02/18/13 18:23 Inhibitor tramadol Allergy Verified 04/27/17 03:14 Medications: Current Medications Acetaminophen (Tylenol) 650 mg PO Q4H PRN PRN Reason: Headache/Fever or Pain Last Admin: 05/01/17 02:14 Dose: 650 mg Al Hydroxide/Mg Hydroxide (Maalox) 30 ml PO Q6H PRN PRN Reason: Heartburn or Indigestion Last Admin: 04/30/17 19:11 Dose: 30 ml Alprazolam (Xanax) 0.25 mg PO Q6H PRN PRN Reason: Anxiety Last Admin: 04/30/17 23:14 Dose: 0.25 mg Carvedilol (Coreg) 6.25 mg PO BID [facility] Last Admin: 05/01/17 08:22 Dose: 6.25 mg Dextrose/Water (Dextrose 50%) 25 gm SLOW IVP PRN PRN PRN Reason: Hypoglycemia Donepezil HCl (Aricept) 5 mg PO DAILY [facility] Last Admin: 05/01/17 08:22 Dose: 5 mg Enalapril Maleate (Vasotec) 2.5 mg PO DAILY [facility] Famotidine (Pepcid) 20 mg PO DAILY [facility] Last Admin: 05/01/17 08:22 Dose: 20 mg Ferrous Fumarate (Hemocyte) 324 mg PO QAM-WM [facility] Last Admin: 05/01/17 08:22 Dose: 324 mg Furosemide (Lasix) 40 mg PO BID [facility] Last Admin: 05/01/17 08:22 Dose: 40 mg Glucagon (Glucagon) 1 mg IM PRN PRN PRN Reason: Hypoglycemia Hydroxyzine HCl (Atarax) 25 mg PO TIDPRN PRN PRN Reason: .ITCHING/ALERGIES Last Admin: 04/30/17 03:55 Dose: 25 mg Hydroxyzine Pamoate (Vistaril) 25 mg PO TID [facility] Last Admin: 05/01/17 08:21 Dose: 25 mg Ibuprofen (Motrin) 600 mg PO Q6H PRN PRN Reason: Pain Insulin Human Lispro (Humalog) 0 units SC .MODERATE SLIDING SC PRN PRN Reason: Moderate Correctional Scale Last Admin: 04/30/17 16:06 Dose: 2 unit Insulin Human Lispro (Humalog) 0 units SC .BEDTIME SLIDING SC PRN PRN Reason: Bedtime Correctional Scale Loperamide HCl (Imodium) 2 mg PO PRN PRN PRN Reason: Diarrhea/Loose Stools Lorazepam (Ativan) 0.25 mg PO Q4H PRN PRN Reason: Anxiety Last Admin: 05/01/17 00:36 Dose: 0.25 mg Magnesium Hydroxide (Milk Of Magnesium) 30 ml PO DAILYPRN PRN PRN Reason: Constipation Ondansetron HCl (Zofran) 4 mg IVP Q6H PRN PRN Reason: Nausea/Vomiting (Insulin Degludec [ Tresiba Flextouch U- 200] 44 Units) Hm Med 0 each SC DAILY [facility] (Liraglutide [ Victoza 2-Darrell] 1.2 Units) Hm Med 0 each SC DAILY [facility] Pramipexole Dihydrochloride (Mirapex) 0.125 mg PO HS [facility] Last Admin: 04/30/17 20:49 Dose: 0.125 mg Rivaroxaban (Xarelto) 20 mg PO DAILY [facility] Last Admin: 05/01/17 08:21 Dose: 20 mg Sodium Chloride (Flush - Normal Saline) 10 ml IVF Q12HR [facility] Last Admin: 05/01/17 08:23 Dose: 10 ml Sodium Chloride (Flush - Normal Saline) 10 ml IVF PRN PRN PRN Reason: Saline Flush Throat Lozenges (Cepastat Lozenges) 1 luisito PO PRN PRN PRN Reason: Cough Trimethoprim/Sulfamethoxazole (Bactrim Ds) 1 tab PO BID [facility] Trimethoprim/Sulfamethoxazole (Bactrim Ds) 1 tab PO ONE AMANDA
[2017-05-01] MEDS ORDERED: Sulfameth/Trimethoprim DS 800-160mg TAB PO SCH ×2 (10:30→21:00)
--- NOTE | 2017-05-01 11:20 | DIS ---
PRIMARY CARE PHYSICIAN: Dr. Gomez Reyna DATE OF ADMISSION: 04/26/2017 DATE OF DISCHARGE: 05/01/2017 DISCHARGE DIAGNOSES: 1. Sepsis secondary to gastroenteritis. 2. Cellulitis. 3. Iron deficiency. CONDITION OF PATIENT AT THE TIME OF DISCHARGE: Stable. I assessed Ms. Gutierrez on the day of discharge. Please refer to my hospitalist progress note from 0 05/01/2017 for further information. DISCHARGE MEDICATIONS: Xanax 0.25 mg every 6 hours as needed, carvedilol 6.25 mg 2 times a day, Titus cept 5 mg daily, Vasotec 2.5 mg daily, ferrous fumarate 324 mg daily, Lasix 40 mg 2 times a day, ibu profen 600 mg every 6 hours as needed, Traceba insulin 44 units daily, Victoza 1.2 units subcutaneou sly daily, Mirapex 0.125 mg at bedtime, Torsemide 20 mg daily, Bactrim-DS 1 tablet 2 times a day, 13 more doses, Atarax 25 mg 3 times a day as needed, Vistaril 25 mg 3 times a day. HOSPITAL COURSE: Ms. Gutierrez is a pleasant 76-year-old lady who was admitted to [facility] on 04/26/2017 for sepsis secondary to gastroenteritis. Preliminary blood cultures di d not show any growth at 48 hours. Final urine culture did not show any growth. Clostridium diffic ile screen was negative. Stool for O\T\P screen was negative. Campylobacter antigen assay was nega tive. She received a dose of Imodium, with the resolution of diarrhea. She continued to complain of restless legs at times, even though she was on Mirapex. Iron levels we re checked. She had a decreased iron of 49, decreased TIBC of 219 and 209 and normal ferritin of 85 .56. She has received a dose of intravenous iron and has been started on iron supplementation as ou tpatient. On the day of discharge, she was noted to have an area of possible cellulitis over the left lower ex tremity. She has been started on Bactrim-DS. She initially received antibiotics for diarrhea. These were stopped after resolution of diarrhea. Many thanks for allowing me to participate in your patient's care. Please feel free to contact me w ith any questions or concerns. On 04/27/2017, she had a creatinine of 1.05, elevated blood urea nitrogen of 22 and normal electroly margarita. Liver profile was normal on 04/26/2017. On 05/01/2017, she had a white count of 6700, decreas ed from 19,400 on 04/26/2017, hemoglobin 11.1, and platelet count 135,000. She is advised to follow up with her primary care physician for final blood culture results. DISCHARGE DESTINATION: Home. TOTAL AMOUNT OF TIME SPENT COORDINATING THIS DISCHARGE: 32 minutes.
== END 2017-05-01 11:54 | disposition home or self-care (01) | DRG 872 ==
LOC: ERS 19:56 → 2NO 23:30 → ONC 04-28 09:06
PROVIDERS: ADMIT Internal Medicine; ATTEND Internal Medicine
DX: A41.9 Sepsis, unspecified organism (principal); I82.409 Acute embolism and thrombosis of unspecified deep veins of unspecified lower extremity; F03.90 Unspecified dementia, unspecified severity, without behavioral disturbance, psychotic disturbance, mood disturbance, and anxiety; L03.116 Cellulitis of left lower limb; K52.9 Noninfective gastroenteritis and colitis, unspecified; E61.1 Iron deficiency; I25.10 Atherosclerotic heart disease of native coronary artery without angina pectoris; I10 Essential (primary) hypertension; E11.9 Type 2 diabetes mellitus without complications; E78.5 Hyperlipidemia, unspecified; Z95.1 Presence of aortocoronary bypass graft
CPT/HCPCS: 36415; 36416; 51701; 71010; 74177; 80048; 80053; 81003; 81015; 82728; 83540; 83550; 83605; 85025; 87040; 87086; 87324; 87328; 87329; 87449; 96361; 96365; 96367; A4216; A4353; J0744; J1940; J2060; J2405; J2543; J2916; J3370; J7050; Q0162; Q0177

== ENCOUNTER 2017-12-12 08:43 | Outpatient (CLI) | payer MEDICARE, OTHER ==
--- NOTE | 2017-12-12 15:55 | NM ---
NUCLEAR MEDICINE BRAIN IMAGIN12/12/17 HISTORY: Essential tremor. TECHNIQUE: DaTscan with axial tomographic images of the brain obtained with utilizing of iodine 123 Ioflupane. FINDINGS: There is asymmetric decreased uptake at the posterior left lentiform nucleus. Normal appearance of up take at the right lentiform nucleus. IMPRESSION: Asymmetric blunting with absence of uptake at the posterior left lentiform nucleus. This can be seen in the setting of Parkinson's disease. Correlate clinically. POS: [facility]
== END 2017-12-12 08:44 | disposition home or self-care (01) ==
LOC: NM 08:43
PROVIDERS: ATTEND Psychiatry & Neurology Neurology
DX: G25.0 Essential tremor (principal); R93.0 Abnormal findings on diagnostic imaging of skull and head, not elsewhere classified
CPT/HCPCS: 78607; A9584

== ENCOUNTER 2018-05-16 08:47 | Inpatient (IN) | payer MEDICARE, OTHER ==
--- NOTE | 2018-05-16 09:56 | RAD ---
THORACIC SPINE THREE VIEWS: History: Fall with back pain. FINDINGS: There are arthritic changes of the spine. The vertebral bodies maintain normal height. No compression fractures. Pedicles appear intact. IMPRESSION: No acute findings. POS: [facility]
--- NOTE | 2018-05-16 09:56 | RAD ---
LUMBAR SPINE SERIES 3 VIEWS: Date: 05/16/18 HISTORY: Patient is status post fall 2 days ago with back pain and generalized weakness. COMPARISON: 09/23/13. FINDINGS: The lumbar vertebral bodies are normal in height. There is degenerative disc narrowing at the L1-2 le mitali. Bilateral pedicle screws are present at L4-5. Markers of a disc implant are within the confines of the disc level. Atherosclerotic changes of the aorta are noted. IMPRESSION: Postop and arthritic changes of the spine. No acute injury. POS: [facility]
--- NOTE | 2018-05-16 10:03 | RAD ---
PORTABLE CHEST: Date: 05/16/18 HISTORY: Fall 2 days ago, pain to right side of chest. FINDINGS: Heart size is enlarged. There is postop sternotomy change with a pacer in place. Lungs are clear of a ny infiltrative process. I do not appreciate any signs of pneumothorax or any definite rib fractures. IMPRESSION: Cardiomegaly. No acute findings. POS: [facility]
[2018-05-16 10:34] LABS: #Eosinphils 0.2 thou/uL (0.0-0.7); #Lymphocytes 1.1 thou/uL (1.20-3.40); #Monocytes 0.7 thou/uL (0.11-0.59); #Neutrophils 7.2 thou/uL (1.40-6.50); %Basophils 0.4 % (0.0-1.0); %Eosinophils 2.6 % (0.0-10.0); %Lymphocytes 11.9 % (21.0-51.0); %Monocytes 7.7 % (0.0-10.0); %Neutrophils 77.4 % (42.0-75.0); Hemoglobin 14.6 g/dL (12.0-16.0); Mean Corpuscular HGB CONC 33.1 g/dL (32.0-36.0); Mean Corpuscular Hemoglobin 30.9 pg (27.0-31.0); Mean Corpuscular Volume 93.5 fL (78.0-98.0); Mean Platelet Volume 7.6 fL (7.4-10.4); Platelet Count 110 thou/uL (130-400); RBC Distribution Width 12.4 % (11.5-14.5); White Blood Cell (WBC) Count 9.3 thou/uL (4.8-10.8)
[2018-05-16 10:35] LABS: Bilirubin Negative (Negative); Blood, Urine Small (Negative); Clarity CLOUDY (Clear); Glucose, Urine (Dipstick) Negative (Negative); Leukocyte Moderate (Negative); Nitrite Positive (Negative); Protein, Urine (Dipstick) Negative (Neg-Trace); Specific Gravity, Urine 1.021 (1.002-1.036); Urobilinogen 0.2 mg/dL (0.2-1.0)
[2018-05-16] MEDS ORDERED: Ketorolac Tromethamine 30 MG/ML VIAL ONE (10:39)
[2018-05-16 10:44] LABS: ALT (SGPT) 18 U/L (8-55); AST (SGOT) 16 U/L (5-34); Albumin 3.5 g/dL (3.4-4.8); Alkaline Phosphatase 74 U/L (40-150); Anion Gap 12 mmol/L (10-20); BUN (Urea Nitrogen) 19 mg/dL (9.8-20.1); Bilirubin, Total 0.5 mg/dL (0.2-1.2); CK (CPK) 65 U/L (29-168); Calc. Creatinine Clearance 0 mL/min (70-130); Calcium 9.3 mg/dL (7.8-10.44); Carbon Dioxide 25 mmol/L (23-31); Chloride 104 mmol/L (98-107); Estimated GFR-MDRD 65; Globulin 2.9 g/dL (2.4-3.5); Glucose 141 mg/dL (83-110); Potassium 3.8 mmol/L (3.5-5.1); Protein, Total 6.4 g/dL (6.0-8.3); Sodium 137 mmol/L (136-145)
[2018-05-16 10:46] LABS: CKMB 1.5 ng/mL (0-6.6)
[2018-05-16 10:49] LABS: Bacteria/HPF 4+ HPF (None Seen); Hyaline Casts/LPF 0-3 HYALINE CAST LPF (0-3 Hyaline); Pathc Cast-AUWi Flag 0.14 (0-2.49); WBC/HPF 21-50 HPF (0-3)
[2018-05-16 10:51] LABS: Troponin I Less than 0.010 ng/mL (< 0.028)
[2018-05-16] MEDS ORDERED: cefTRIAXone\\ROCEPHIN 1 GM VIAL ONE (12:34)
--- NOTE | 2018-05-16 14:29 | HP ---
PRIMARY CARE PHYSICIAN: Dr. Gomez Reyna. REASON FOR ADMISSION: Sepsis, urinary tract infection, generalized weakness. HISTORY OF PRESENT ILLNESS: A 77-year-old female who has underlying history of cardiomyopathy, hyper tension, benign essential tremor, anxiety and depression as well as senile dementia, who presented to emergency room with complaint of weakness. For last 4 days, the patient is gradually going downhill . She has very poor appetite. She is feeling weak day by day. She had 3 episodes of fall without a ny significant injury other than mild bruise. Last night, the patient fell down and the patient was not able to get up by herself and that is why patient's called her daughter who assisted her. The patient was slightly drowsy and delay in response. She did not have any motor weakness. The marzena dallas's daughter is a nurse. She did not notice any speech problem, but the patient was appeared ve ry weak and tired. She was warm, but she did not measure temperature. In the emergency room, her te mperature is 99.1. She denies any fall related injury. She denies any joint pain or any bone pain. She does have pain on the back which is predominantly on the right side. Family member attributes t o related with fall. In the emergency room, the patient had a CT thoracolumbar spine which did not show any broken bone. The patient does have recurrent urinary tract infection in the past and the patient reports that most of the time she presents this way. She never had any dysuria, hematuria, increased frequency or gretchen dder pain. Family member reports that they went to see primary care physician yesterday and urine was checked, b ut at that time, the patient was not given any antibiotic therapy. REVIEW OF SYSTEMS: Please see my HPI for pertinent positive and negative. All other review of syste ms reviewed and negative except as mentioned in the HPI. Constitutional: Weight loss or gain, ability to conduct usual activities. Skin: Rash, itching. Eyes: Double vision, pain. ENT/Mouth: Nose bleeding, neck stiffness, pain, tenderness. Cardiovascular: Palpitations, dyspnea on exertion, orthopnea. Respiratory: Shortness of breath, wheezing, cough, hemoptysis, fever or night sweats. Gastrointestinal: Poor appetite, abdominal pain, heartburn, nausea, vomiting, constipation, or diarrhea. Genitourinary: Urgency, frequency, dysuria, nocturia. Musculoskeletal: Pain, swelling. Neurologic/Psychiatric: Anxiety, depression. Allergy/Immunologic: Skin rash, bleeding tendency. ADDITIONAL INFORMATION: The patient normally when she feels well, she ambulates with a walker. She does feel dyspnea on exertion. She does have trace bilateral lower extremity edema and for that she is taking Lasix. She denies any worsening of edema. She denies any orthopnea or PND. She denies an y upper respiratory symptoms or lower respiratory symptoms. She denies any constipation, diarrhea, m camelia, hematochezia. ALLERGIES: CODEINE, HYDROCODONE, LIDOCAINE, STATIN THERAPY, TRAMADOL. CURRENT HOME MEDICATIONS: Coreg 6.25 mg twice daily, Lasix 40 mg p.o. b.i.d., Atarax 25 mg twice nathan ly, Xanax 0.5 mg q.8 hourly p.r.n., enalapril 2.5 mg p.o. daily, Aricept 5 mg p.o. daily, primidone 5 0 mg twice daily, Namenda 10 mg twice daily, Celexa 20 mg p.o. daily, NovoLog insulin as per sliding scale. PAST MEDICAL HISTORY: Diabetes type 2, hypertension, chronic systolic heart failure, cardiomyopathy with AICD in place, history of TIA, senile dementia, history of DVT, recurrent urinary tract infectio n, dyslipidemia. PAST SURGICAL HISTORY: CABG, low back surgery. PAST PSYCHIATRIC HISTORY: Anxiety and depression. SOCIAL HISTORY: The patient lives at home. She is and lives with family. No history of tob acco, alcohol or illicit drug abuse. FAMILY HISTORY: The patient denies any family history of stroke, cancer or heart disease. EMERGENCY ROOM COURSE: The patient has received Rocephin and Toradol 30 mg. PHYSICAL EXAMINATION: VITAL SIGNS: On arrival, blood pressure 195/79, pulse 79, respiratory rate 20, temperature 99.1, sat uration 95% on 2 liters, weight 77.8 kilograms. GENERAL: The patient currently appears weak, chronically ill-looking, tired, hypertensive slightly f ebrile. HEAD: Normocephalic, atraumatic. EYES: Pupils round, reactive to light. Extraocular muscle intact. ENT: Moist mucous membranes. No oral lesion, no pharyngeal erythema, no exudate. NECK: Supple, no JVD, no thyromegaly, no carotid bruit. LUNGS: Grossly clear to auscultation without any obvious rhonchi or rales. No accessory muscles of respiration in use. CARDIAC: S1, S2 appears regular, soft systolic murmur noted parasternally. No gallop, no rub. AICD in place. ABDOMEN: Soft, bowel sounds present. Suprapubic discomfort noted on deep palpation. No peritoneal sign, no organomegaly, no mass. BACK: Right-sided CVA tenderness noted. EXTREMITIES: Upper extremity: Passive movement of all joints are normal. Lower extremities: Bilat eral trace lower extremity edema noted. Good distal pulsation. SKIN: No skin rash. HEMATOLOGICAL: No lymphadenopathy. PSYCHIATRIC: Normal affect. SIGNIFICANT LABORATORY DATA: EKG showing pacemaker rhythm. CT thoracic spine negative for any fract ure or dislocation. CT lumbar spine negative for any fracture or dislocation. Chest x-ray negative for any acute cardiopulmonary process. CBC: WBC 9.3, hemoglobin 14.6, platelet 110. BMP shows sodi um 137, potassium 3.8, chloride 104, carbon dioxide 25, BUN 19, creatinine 0.85, glucose 141, calcium 9.3. LFT: AST 16, ALT 18, alkaline phosphate 74, albumin 3.5, CK 65, CK-MB 1.5, troponin I less th an 0.010. Urinalysis suggestive of urinary tract infection. ASSESSMENT AND PLAN: 1. Sepsis due to urinary tract infection. 2. Urinary tract infection with clinical acute pyelonephritis. 3. Generalized weakness due to problem #1 and #2. 4. Chronic systolic heart failure stage C with AICD in place, currently euvolemic. 5. Thrombocytopenia, likely due to problem #1. 6. Hypertension, uncontrolled. 7. Benign essential tremor. 8. Anxiety and depression. 9. Senile dementia. 10. Physical deconditioning. 11. Diabetes type 2. 12. Dyslipidemia with statin intolerance. PLAN: 1. Full admission to medical floor. 2. will be based on previous culture result, we will start Rocephin 1 gram q.24 hours along with pro biotic, Florastor 250 mg p.o. daily. Follow up on urine culture result and based on culture result, change antibiotic therapy accordingly. 3. The patient has underlying congestive heart failure and that is why we will avoid IV fluid at thi s point. 4. We will resume patient's home medication including Coreg 6.25 mg twice daily, Lasix 40 mg p.o. b. i.d., enalapril 2.5 mg p.o. daily. We will also continue her home medication Xanax 0.5 mg q.8 hourly p.r.n., Celexa 20 mg daily. Continue primidone 50 mg twice daily, Aricept 5 mg p.o. at bedtime, Nam enda 10 mg twice daily, insulin as per sliding scale per protocol. Diabetic diet will be given. The patient will need PT, OT evaluation and as the patient's condition is significantly weak that is why she may benefit from rehabilitation placement upon discharge that we will decide based on her clinic al course and PT, OT finding. 5. Deep venous thrombosis prophylaxis, heparin 5000 units subcutaneously twice daily. We will monit or platelet count and if platelet count drops, then we will discontinue. 6. Gastrointestinal prophylaxis, Pepcid 20 mg p.o. b.i.d. 7. Code status: The patient is FULL CODE. The patient's and daughter is surrogate decision maker. Disposition plan based on clinical course. We are expecting patient's stay in hospital more than 2 m idnights. Plan of care discussed with the patient and family member at bedside in the emergency room .
[2018-05-16] MEDS ORDERED: Sodium Chloride 0.65% Nasal 44 ML BOT EA NARE PRN (16:09)
[2018-05-16] MEDS ORDERED: Diabetic Tussin 200 MG/10 ML UDCUP PO PRN (16:09)
[2018-05-16] MEDS ORDERED: Loratadine 10 MG TAB PO PRN (16:09)
[2018-05-16] MEDS ORDERED: Dextrose 5% in Water 1,000 ML IV PRN (16:09)
[2018-05-16] MEDS ORDERED: Artificial Tears 18 DROP/0.9 ML EA EYE PRN (16:09)
[2018-05-16] MEDS ORDERED: Senokot S 8.6-50 MG TAB PO PRN (16:09)
[2018-05-16] MEDS ORDERED: hydrOXYzine 25 MG TAB PO PRN (16:09)
[2018-05-16] MEDS ORDERED: hydrALAZINE 20 MG/ML VIAL SLOW IVP PRN (16:09)
[2018-05-16] MEDS ORDERED: Dextrose 50% Abboject 50 ML SYRINGE SLOW IVP PRN (16:09)
[2018-05-16] MEDS ORDERED: Bisacodyl 10 MG SUPP PR PRN (16:09)
[2018-05-16] MEDS ORDERED: Loperamide HCl 2 MG CAP PO PRN (16:09)
[2018-05-16] MEDS ORDERED: Ondansetron ODT 4 MG TAB PO PRN (16:09)
[2018-05-16] MEDS ORDERED: Chloraseptic Spray 180 ml Bottle PO PRN (16:09)
[2018-05-16] MEDS ORDERED: Ondansetron HCl/PF 4 MG/2 ML Vial IVP PRN (16:09)
[2018-05-16] MEDS ORDERED: Eucerin (Mineral Oil/Petrolatum,White) 30 gm Jar TOP PRN (16:09)
[2018-05-16] MEDS ORDERED: Zolpidem Tartrate 5 MG TAB PO PRN (16:09)
[2018-05-16] MEDS ORDERED: Furosemide 40 MG TAB PO SCH (16:30)
[2018-05-16] MEDS: ALPRAZolam 0.5 MG TAB PO PRN (16:52)
[2018-05-16] MEDS: Acetaminophen 325 MG TAB PO PRN (16:52)
[2018-05-16 17:01] VITALS: BMI 33.5
[2018-05-16] MEDS: Famotidine 20 MG TAB PO SCH (20:21)
[2018-05-16] MEDS: Primidone 50 MG TAB PO SCH (20:21)
[2018-05-16] MEDS: Donepezil HCl 5 MG TAB PO SCH (20:21)
[2018-05-16] MEDS: HumaLOG 300 UNITS/3 ML VIAL SC PRN (20:21)
[2018-05-16] MEDS: Calcium Carbonate 500 MG ChewTAB PO PRN (20:22)
[2018-05-16] MEDS: Ketorolac Tromethamine 30 MG/ML VIAL IVP PRN (20:25)
[2018-05-16] MEDS: Heparin 5,000 UNITS/ML VIAL SC SCH (20:25)
[2018-05-17] MEDS ORDERED: HumaLOG 300 UNITS/3 ML VIAL ONE (06:36)
[2018-05-17] MEDS: Heparin 5,000 UNITS/ML VIAL SC SCH ×2 (09:25→20:16)
[2018-05-17] MEDS: Saccharomyces boulardii 250 MG CAP PO SCH (09:25)
[2018-05-17] MEDS: Primidone 50 MG TAB PO SCH ×2 (09:25→20:30)
[2018-05-17] MEDS: Furosemide 40 MG TAB PO SCH ×2 (09:25→13:32)
[2018-05-17] MEDS: Citalopram 20 MG TAB PO SCH (09:25)
[2018-05-17] MEDS: Famotidine 20 MG TAB PO SCH ×2 (09:25→20:16)
[2018-05-17] MEDS: Ketorolac Tromethamine 30 MG/ML VIAL IVP PRN ×2 (09:35→17:25)
[2018-05-17 12:48] LABS: ALT (SGPT) 16 U/L (8-55); AST (SGOT) 20 U/L (5-34); Albumin 3.4 g/dL (3.4-4.8); Alkaline Phosphatase 70 U/L (40-150); Anion Gap 13 mmol/L (10-20); BUN (Urea Nitrogen) 24 mg/dL (9.8-20.1); Bilirubin, Total 0.5 mg/dL (0.2-1.2); Calc. Creatinine Clearance 55 mL/min (70-130); Calcium 9.5 mg/dL (7.8-10.44); Carbon Dioxide 26 mmol/L (23-31); Chloride 103 mmol/L (98-107); Estimated GFR-MDRD 53; Globulin 3.1 g/dL (2.4-3.5); Glucose 81 mg/dL (83-110); Potassium 3.7 mmol/L (3.5-5.1); Protein, Total 6.5 g/dL (6.0-8.3); Sodium 138 mmol/L (136-145)
[2018-05-17] MEDS: cefTRIAXone\\ROCEPHIN 1 GM in Sodium Chloride 0.9% 100 ML IVPB SCH (13:29)
[2018-05-17] MEDS: HumaLOG 300 UNITS/3 ML VIAL SC PRN ×2 (13:30→17:28)
[2018-05-17] MEDS: Acetaminophen 325 MG TAB PO PRN (14:38)
--- NOTE | 2018-05-17 14:41 | PDOC.PN ---
- Subjective Encounter Start Date: 05/17/18 Encounter Start Time: 09:45 -: old records requested/rev Patient seen and examined. No new complaints. No overnight events - Objective Resuscitation Status: Resuscitation Status FULL:Full Resuscitation MAR Reviewed: Yes Vital Signs & Weight: Vital Signs (12 hours) BP BP 05/17/18 11:33 86/66 L 05/17/18 09:25 182/71 H Weight Weight 171 lb 8.314 oz Result Diagrams: 05/16/18 10:13 05/17/18 03:50 Additional Labs: Accuchecks 05/16/18 05/16/18 05/16/18 20:11 17:08 16:30 POC Glucose 269 H 114 H 69 L Phys Exam - Physical Examination Constitutional: NAD HEENT: PERRLA, moist MMs, sclera anicteric Neck: no JVD, supple Respiratory: no wheezing, no rales, no rhonchi Cardiovascular: RRR, no significant murmur, no rub Gastrointestinal: soft, non-tender, no distention, positive bowel sounds Musculoskeletal: no edema, pulses present Neurological: non-focal, normal sensation Lymphatic: no nodes Psychiatric: normal affect, A&O x 3 Skin: no rash, normal turgor Dx/Plan (1) Sepsis Code(s): A41.9 - SEPSIS, UNSPECIFIED ORGANISM Status: Acute (2) UTI (urinary tract infection) Status: Acute (3) Thrombocytopenia Code(s): D69.6 - THROMBOCYTOPENIA, UNSPECIFIED Status: Acute (4) Weakness generalized Code(s): R53.1 - WEAKNESS Status: Acute (5) Anxiety and depression Code(s): F41.9 - ANXIETY DISORDER, UNSPECIFIED; F32.9 - MAJOR DEPRESSIVE DISORDER, SINGLE EPISODE, UNSPECIFIED Status: Chronic (6) Diabetes type 2, controlled Code(s): E11.9 - TYPE 2 DIABETES MELLITUS WITHOUT COMPLICATIONS Status: Chronic (7) Chronic systolic CHF, NYHA class 2 and BALJIT/AHA stage C Code(s): I50.22 - CHRONIC SYSTOLIC (CONGESTIVE) HEART FAILURE Status: Chronic (8) Benign essential tremor Code(s): G25.0 - ESSENTIAL TREMOR Status: Chronic (9) Senile dementia Code(s): F03.90 - UNSPECIFIED DEMENTIA WITHOUT BEHAVIORAL DISTURBANCE Status: Chronic (10) Obesity (BMI 30.0-34.9) Code(s): E66.9 - OBESITY, UNSPECIFIED Status: Chronic (11) CAD (coronary artery disease) Code(s): I25.10 - ATHSCL HEART DISEASE OF [place] CORONARY ARTERY W/O ANG PCTRS Status: Chronic (12) HTN (hypertension) Code(s): I10 - ESSENTIAL (PRIMARY) HYPERTENSION Status: Chronic - Plan cont current plan of care, plan discussed w/ family, 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 Review of Systems - Review of Systems Constitutional: weakness. negative: fever, chills, sweats, malaise, other ENT: negative: Ear Pain, Ear Discharge, Nose Pain, Nose Discharge, Nose Congestion, Mouth Pain, Mouth Swelling, Throat Pain, Throat Swelling, Other Respiratory: negative: Cough, Dry, Shortness of Breath, Hemoptysis, SOB with Excertion, Pleuritic Pain, Sputum, Wheezing Cardiovascular: negative: chest pain, palpitations, orthopnea, paroxysmal nocturnal dyspnea, edema, light headedness, other Gastrointestinal: negative: Nausea, Vomiting, Abdominal Pain, Diarrhea, Constipation, Melena, Hematochezia, Other Genitourinary: negative: Dysuria, Frequency, Incontinence, Hematuria, Retention , Other Musculoskeletal: negative: Neck Pain, Shoulder Pain, Arm Pain, Back Pain, Hand Pain, Leg Pain, Foot Pain, Other Skin: negative: Rash, Lesions, Agusto, Bruising, Other - Medications/Allergies Allergies/Adverse Reactions: Allergies Allergy/AdvReac Type Severity Reaction Status Date / Time codeine Allergy Verified 05/16/18 16:16 hydrocodone [Hydrocodone] Allergy Verified 05/16/18 16:16 lidocaine Allergy Verified 05/16/18 16:16 [id number] Reductase Allergy Verified 05/16/18 16:16 Inhibitor tramadol Allergy Verified 05/16/18 16:16 Medications: Current Medications Acetaminophen (Tylenol) 650 mg PO Q4H PRN PRN Reason: Headache/Fever/Mild Pain (1-3) Last Admin: 05/16/18 16:52 Dose: 650 mg Alprazolam (Xanax) 0.5 mg PO TIDPRN PRN PRN Reason: Anxiety/Agitation Last Admin: 05/16/18 16:52 Dose: 0.5 mg Artificial Tears (Tears Naturale) 0 drop EA EYE PRN PRN PRN Reason: Dry Eyes Bisacodyl (Dulcolax) 10 mg [place] DAILYPRN PRN PRN Reason: Constipation Calcium Carbonate (Tums) 1,000 mg PO Q4H PRN PRN Reason: Heartburn or Indigestion Last Admin: 05/16/18 20:22 Dose: 1,000 mg Citalopram Hydrobromide (Celexa) 20 mg PO DAILY [facility] Last Admin: 05/17/18 09:25 Dose: 20 mg Dextrose/Water (Dextrose 50%) 25 gm SLOW IVP PRN PRN PRN Reason: Hypoglycemia Donepezil HCl (Aricept) 5 mg PO HS [facility] Last Admin: 05/16/18 20:21 Dose: 5 mg Enalapril Maleate (Vasotec) 2.5 mg PO DAILY [facility] Last Admin: 05/17/18 09:25 Dose: 2.5 mg Famotidine (Pepcid) 20 mg PO BID [facility] Last Admin: 05/17/18 09:25 Dose: 20 mg Furosemide (Lasix) 40 mg PO 0900,1400 [facility] Last Admin: 05/17/18 09:25 Dose: 40 mg Glucagon (Glucagon) 1 mg IM PRN PRN PRN Reason: Hypoglycemia Guaifenesin (Robitussin Sf) 200 mg PO Q4H PRN PRN Reason: Cough Heparin Sodium (Porcine) (Heparin) 5,000 units SC BID [facility] Last Admin: 05/17/18 09:25 Dose: 5,000 units Hydralazine HCl (Apresoline) 10 mg SLOW IVP Q4H PRN PRN Reason: Systolic BP > 180 Hydroxyzine HCl (Atarax) 25 mg PO Q12H PRN PRN Reason: Itching Ceftriaxone Sodium 1 gm/ (Sodium Chloride) 100 mls @ 200 mls/hr IVPB 1300 [facility] Dextrose/Water (D5w) 1,000 mls @ 0 mls/hr IV .Q0M PRN PRN Reason: Hypoglycemia Insulin Human Lispro (Humalog) 0 units SC .MODERATE SLIDING SC PRN PRN Reason: Moderate Correctional Scale Insulin Human Lispro (Humalog) 0 units SC .BEDTIME SLIDING SC PRN PRN Reason: Bedtime Correctional Scale Last Admin: 05/16/18 20:21 Dose: 3 unit Ketorolac Tromethamine (Toradol) 15 mg IVP Q6H PRN PRN Reason: Pain Stop: 05/21/18 17:37 Last Admin: 05/17/18 09:35 Dose: 15 mg Loperamide HCl (Imodium) 2 mg PO PRN PRN PRN Reason: Diarrhea/Loose Stools Loratadine (Claritin) 10 mg PO DAILYPRN PRN PRN Reason: Sinus Symptoms Last Admin: 05/16/18 20:21 Dose: 10 mg Mineral Oil/White Petrolatum (Eucerin Cream) 0 gm TOP BIDPRN PRN PRN Reason: Dry Skin Ondansetron HCl (Zofran Odt) 4 mg PO Q6H PRN PRN Reason: Nausea/Vomiting Ondansetron HCl (Zofran) 4 mg IVP Q6H PRN PRN Reason: Nausea/Vomiting Phenol (Chloraseptic [place] 180 Ml Bot) 0 ml PO PRN PRN PRN Reason: Sore Throat Primidone (Mysoline) 50 mg PO BID [facility] Last Admin: 05/17/18 09:25 Dose: 50 mg Saccharomyces Boulardii (Florastor) 250 mg PO DAILY [facility] Last Admin: 05/17/18 09:25 Dose: 250 mg Senna/Docusate Sodium (Senokot S) 2 tab PO BID PRN PRN Reason: Constipation Sodium Chloride ([place] Nasal [place] 0.65%) 0 ml EA NARE QIDPRN PRN PRN Reason: Nasal Congestion Zolpidem Tartrate (Ambien) 5 mg PO HSPRN PRN PRN Reason: Insomnia
[2018-05-17 17:07] LABS: Hemoglobin 14.8 g/dL (12.0-16.0); Mean Corpuscular HGB CONC 33.6 g/dL (32.0-36.0); Mean Corpuscular Hemoglobin 31.5 pg (27.0-31.0); Mean Corpuscular Volume 93.9 fL (78.0-98.0); RBC Distribution Width 12.3 % (11.5-14.5); Red Blood Cell (RBC) Count 4.68 mill/uL (4.20-5.40); White Blood Cell (WBC) Count 6.6 thou/uL (4.8-10.8)
[2018-05-17 17:08] LABS: #Eosinphils 0.2 thou/uL (0.0-0.7); #Lymphocytes 1.3 thou/uL (1.20-3.40); #Monocytes 0.6 thou/uL (0.11-0.59); #Neutrophils 4.5 thou/uL (1.40-6.50); %Basophils 0.5 % (0.0-1.0); %Eosinophils 3.1 % (0.0-10.0); %Lymphocytes 19.5 % (21.0-51.0); %Monocytes 8.5 % (0.0-10.0); %Neutrophils 68.4 % (42.0-75.0); Mean Platelet Volume 8.9 fL (7.4-10.4); Platelet Count 103 thou/uL (130-400)
[2018-05-17] MEDS: Donepezil HCl 5 MG TAB PO SCH (20:16)
[2018-05-17] MEDS: ALPRAZolam 0.5 MG TAB PO PRN (20:16)
[2018-05-18] MEDS: Calcium Carbonate 500 MG ChewTAB PO PRN ×2 (01:05→15:45)
[2018-05-18] MEDS: Ketorolac Tromethamine 30 MG/ML VIAL IVP PRN ×2 (02:01→14:23)
[2018-05-18] MEDS: Acetaminophen 325 MG TAB PO PRN ×3 (05:38→22:13)
[2018-05-18] MEDS: HumaLOG 300 UNITS/3 ML VIAL SC PRN ×3 (05:39→17:46)
[2018-05-18] MEDS ORDERED: Carvedilol 3.125 MG TAB PO SCH (09:00)
[2018-05-18] MEDS: Citalopram 20 MG TAB PO SCH (09:07)
[2018-05-18] MEDS: Primidone 50 MG TAB PO SCH ×2 (09:08→20:09)
[2018-05-18] MEDS: Furosemide 40 MG TAB PO SCH ×2 (09:08→14:23)
[2018-05-18] MEDS: Famotidine 20 MG TAB PO SCH ×2 (09:08→20:03)
[2018-05-18] MEDS: Aspirin 325 MG TAB PO SCH (09:08)
[2018-05-18] MEDS: Heparin 5,000 UNITS/ML VIAL SC SCH ×2 (10:42→20:01)
[2018-05-18] MEDS: Saccharomyces boulardii 250 MG CAP PO SCH (10:43)
[2018-05-18] MEDS: cefTRIAXone\\ROCEPHIN 1 GM in Sodium Chloride 0.9% 100 ML IVPB SCH (12:46)
--- NOTE | 2018-05-18 14:25 | PDOC.PN ---
- Subjective Encounter Start Date: 05/18/18 Encounter Start Time: 12:15 Subjective: pt up in bed no complains - Objective Resuscitation Status: Resuscitation Status FULL:Full Resuscitation Vital Signs & Weight: Vital Signs (12 hours) Temp Pulse Resp BP BP BP Pulse Ox 05/18/18 12:55 160/83 H 05/18/18 11:00 97.5 F L 71 18 184/68 H 97 05/18/18 10:42 184/67 H 05/18/18 08:00 97 Weight Weight 171 lb 8.314 oz I&O: 05/17/18 05/18/18 05/19/18 06:59 06:59 06:59 Intake Total 850 Balance 850 Result Diagrams: 05/17/18 03:50 05/17/18 03:50 Additional Labs: Accuchecks 05/18/18 05/18/18 05/17/18 10:49 05:02 20:16 POC Glucose 231 H 170 H 178 H 05/17/18 05/17/18 05/17/18 16:14 11:14 05:45 POC Glucose 200 H 232 H 89 Phys Exam - Physical Examination Neck: no nodes, no JVD, supple, full ROM Respiratory: no wheezing, no rales, no rhonchi, wheezing present, clear to auscultation bilateral Cardiovascular: RRR, no significant murmur, no rub, gallop, irregular Gastrointestinal: soft, non-tender, no distention, positive bowel sounds Dx/Plan (1) UTI (urinary tract infection) Status: Acute (2) Weakness generalized Code(s): R53.1 - WEAKNESS Status: Acute (3) CAD (coronary artery disease) Code(s): I25.10 - ATHSCL HEART DISEASE OF [place] CORONARY ARTERY W/O ANG PCTRS Status: Chronic - Plan pt up in bed uti indicated ecoli -: will continue current abx -: echo results pending * . Review of Systems - Review of Systems ENT: negative: Ear Pain, Ear Discharge, Nose Pain, Nose Discharge, Nose Congestion, Mouth Pain, Mouth Swelling, Throat Pain, Throat Swelling, Other Respiratory: negative: Cough, Dry, Shortness of Breath, Hemoptysis, SOB with Excertion, Pleuritic Pain, Sputum, Wheezing Cardiovascular: negative: chest pain, palpitations, orthopnea, paroxysmal nocturnal dyspnea, edema, light headedness, other Gastrointestinal: negative: Nausea, Vomiting, Abdominal Pain, Diarrhea, Constipation, Melena, Hematochezia, Other - Medications/Allergies Allergies/Adverse Reactions: Allergies Allergy/AdvReac Type Severity Reaction Status Date / Time codeine Allergy Verified 05/16/18 16:16 hydrocodone [Hydrocodone] Allergy Verified 05/16/18 16:16 lidocaine Allergy Verified 05/16/18 16:16 [id number] Reductase Allergy Verified 05/16/18 16:16 Inhibitor tramadol Allergy Verified 05/16/18 16:16 Medications: Current Medications Acetaminophen (Tylenol) 650 mg PO Q4H PRN PRN Reason: Headache/Fever/Mild Pain (1-3) Last Admin: 05/18/18 09:08 Dose: 650 mg Alprazolam (Xanax) 0.5 mg PO TIDPRN PRN PRN Reason: Anxiety Artificial Tears (Tears Naturale) 0 drop EA EYE PRN PRN PRN Reason: Dry Eyes Aspirin (Aspirin) 325 mg PO DAILY [facility] Last Admin: 05/18/18 09:08 Dose: 325 mg Bisacodyl (Dulcolax) 10 mg [place] DAILYPRN PRN PRN Reason: Constipation Calcium Carbonate (Tums) 1,000 mg PO Q4H PRN PRN Reason: Heartburn or Indigestion Last Admin: 05/18/18 01:05 Dose: 1,000 mg Carvedilol (Coreg) 12.5 mg PO BID [facility] Citalopram Hydrobromide (Celexa) 20 mg PO DAILY [facility] Last Admin: 05/18/18 09:07 Dose: 20 mg Dextrose/Water (Dextrose 50%) 25 gm SLOW IVP PRN PRN PRN Reason: Hypoglycemia Donepezil HCl (Aricept) 5 mg PO HS [facility] Last Admin: 05/17/18 20:16 Dose: 5 mg Enalapril Maleate (Vasotec) 2.5 mg PO DAILY [facility] Last Admin: 05/18/18 10:42 Dose: 2.5 mg Famotidine (Pepcid) 20 mg PO BID [facility] Last Admin: 05/18/18 09:08 Dose: 20 mg Furosemide (Lasix) 40 mg PO 0900,1400 [facility] Last Admin: 05/18/18 14:23 Dose: 40 mg Glucagon (Glucagon) 1 mg IM PRN PRN PRN Reason: Hypoglycemia Guaifenesin (Robitussin Sf) 200 mg PO Q4H PRN PRN Reason: Cough Heparin Sodium (Porcine) (Heparin) 5,000 units SC BID [facility] Last Admin: 05/18/18 10:42 Dose: 5,000 units Hydralazine HCl (Apresoline) 10 mg SLOW IVP Q4H PRN PRN Reason: Systolic BP > 180 Hydroxyzine HCl (Atarax) 25 mg PO Q12H PRN PRN Reason: Itching Last Admin: 05/17/18 17:31 Dose: 25 mg Ceftriaxone Sodium 1 gm/ (Sodium Chloride) 100 mls @ 200 mls/hr IVPB 1300 [facility] Last Admin: 05/18/18 12:46 Dose: 100 mls Dextrose/Water (D5w) 1,000 mls @ 0 mls/hr IV .Q0M PRN PRN Reason: Hypoglycemia Insulin Human Lispro (Humalog) 0 units SC .MODERATE SLIDING SC PRN PRN Reason: Moderate Correctional Scale Last Admin: 05/18/18 12:52 Dose: 4 unit Insulin Human Lispro (Humalog) 0 units SC .BEDTIME SLIDING SC PRN PRN Reason: Bedtime Correctional Scale Last Admin: 05/16/18 20:21 Dose: 3 unit Ketorolac Tromethamine (Toradol) 15 mg IVP Q6H PRN PRN Reason: Pain Stop: 05/21/18 17:37 Last Admin: 05/18/18 14:23 Dose: 15 mg Loperamide HCl (Imodium) 2 mg PO PRN PRN PRN Reason: Diarrhea/Loose Stools Loratadine (Claritin) 10 mg PO DAILYPRN PRN PRN Reason: Sinus Symptoms Last Admin: 05/16/18 20:21 Dose: 10 mg Mineral Oil/White Petrolatum (Eucerin Cream) 0 gm TOP BIDPRN PRN PRN Reason: Dry Skin Ondansetron HCl (Zofran Odt) 4 mg PO Q6H PRN PRN Reason: Nausea/Vomiting Ondansetron HCl (Zofran) 4 mg IVP Q6H PRN PRN Reason: Nausea/Vomiting Phenol (Chloraseptic [place] 180 Ml Bot) 0 ml PO PRN PRN PRN Reason: Sore Throat Primidone (Mysoline) 50 mg PO BID [facility] Last Admin: 05/18/18 09:08 Dose: 50 mg Saccharomyces Boulardii (Florastor) 250 mg PO DAILY [facility] Last Admin: 05/18/18 10:43 Dose: 250 mg Senna/Docusate Sodium (Senokot S) 2 tab PO BID PRN PRN Reason: Constipation Sodium Chloride ([place] Nasal [place] 0.65%) 0 ml EA NARE QIDPRN PRN PRN Reason: Nasal Congestion Zolpidem Tartrate (Ambien) 5 mg PO HSPRN PRN PRN Reason: Insomnia
[2018-05-18] MEDS ORDERED: Cyclobenzaprine 10 MG TAB PO PRN (15:40)
[2018-05-18] MEDS: Carvedilol 6.25 MG TAB PO SCH (20:01)
[2018-05-18] MEDS: Donepezil HCl 5 MG TAB PO SCH (20:03)
[2018-05-18] MEDS: ALPRAZolam 0.5 MG TAB PO PRN (22:13)
[2018-05-19] MEDS: Furosemide 40 MG TAB PO SCH ×2 (08:38→14:53)
[2018-05-19] MEDS: Carvedilol 6.25 MG TAB PO SCH ×2 (08:38→20:03)
[2018-05-19] MEDS: Saccharomyces boulardii 250 MG CAP PO SCH (08:39)
[2018-05-19] MEDS: Aspirin 325 MG TAB PO SCH (08:39)
[2018-05-19] MEDS: Famotidine 20 MG TAB PO SCH ×2 (08:39→20:03)
[2018-05-19] MEDS: Primidone 50 MG TAB PO SCH ×2 (08:39→20:04)
[2018-05-19] MEDS: Citalopram 20 MG TAB PO SCH (08:44)
[2018-05-19] MEDS: ALPRAZolam 0.5 MG TAB PO PRN ×2 (08:44→20:03)
[2018-05-19] MEDS: Heparin 5,000 UNITS/ML VIAL SC SCH ×2 (08:52→20:04)
[2018-05-19] MEDS ORDERED: Polyethylene Glycol 3350 17 GM Packet PO SCH (12:15)
[2018-05-19] MEDS: cefTRIAXone\\ROCEPHIN 1 GM in Sodium Chloride 0.9% 100 ML IVPB SCH (12:19)
[2018-05-19] MEDS: HumaLOG 300 UNITS/3 ML VIAL SC PRN ×2 (12:20→16:35)
[2018-05-19] MEDS ORDERED: Milk Of Magnesia 30 ML UDCUP PO PRN (12:44)
--- NOTE | 2018-05-19 14:09 | PDOC.PN ---
- Subjective Encounter Start Date: 05/19/18 Encounter Start Time: 11:30 Subjective: pt up in bed no complains - Objective Resuscitation Status: Resuscitation Status FULL:Full Resuscitation Vital Signs & Weight: Vital Signs (12 hours) Temp Pulse Resp BP BP Pulse Ox 05/19/18 11:00 97.7 F 68 18 162/75 H 94 L 05/19/18 09:50 157/67 H 05/19/18 08:38 157/67 H 05/19/18 08:00 97.4 F L 69 18 157/67 H 94 L Weight Weight 171 lb 8.314 oz I&O: 05/18/18 05/19/18 05/20/18 06:59 06:59 06:59 Intake Total 850 940 Balance 850 940 Result Diagrams: 05/17/18 03:50 05/17/18 03:50 Additional Labs: Accuchecks 05/19/18 05/19/18 05/18/18 11:22 04:19 20:13 POC Glucose 253 H 146 H 228 H 05/18/18 16:10 POC Glucose 225 H Phys Exam - Physical Examination Neck: no nodes, no JVD, supple, full ROM Respiratory: no wheezing, no rales, no rhonchi, wheezing present, clear to auscultation bilateral Cardiovascular: RRR, no significant murmur, no rub, gallop, irregular Gastrointestinal: soft, non-tender, no distention, positive bowel sounds Dx/Plan (1) UTI (urinary tract infection) Status: Acute (2) Weakness generalized Code(s): R53.1 - WEAKNESS Status: Acute (3) CAD (coronary artery disease) Code(s): I25.10 - ATHSCL HEART DISEASE OF [place] CORONARY ARTERY W/O ANG PCTRS Status: Chronic - Plan echo done pending read -: pt on ceftriaxone will change to ceftin on discharge * . Review of Systems - Review of Systems Cardiovascular: negative: chest pain, palpitations, orthopnea, paroxysmal nocturnal dyspnea, edema, light headedness, other Gastrointestinal: negative: Nausea, Vomiting, Abdominal Pain, Diarrhea, Constipation, Melena, Hematochezia, Other Genitourinary: negative: Dysuria, Frequency, Incontinence, Hematuria, Retention , Other - Medications/Allergies Allergies/Adverse Reactions: Allergies Allergy/AdvReac Type Severity Reaction Status Date / Time codeine Allergy Verified 05/16/18 16:16 hydrocodone [Hydrocodone] Allergy Verified 05/16/18 16:16 lidocaine Allergy Verified 05/16/18 16:16 Fopfjyp-[id number]-Ytt Reductase Allergy Verified 05/16/18 16:16 Inhibitor tramadol Allergy Verified 05/16/18 16:16 Medications: Current Medications Acetaminophen (Tylenol) 650 mg PO Q4H PRN PRN Reason: Headache/Fever/Mild Pain (1-3) Last Admin: 05/18/18 22:13 Dose: 650 mg Alprazolam (Xanax) 0.5 mg PO TIDPRN PRN PRN Reason: Anxiety Last Admin: 05/19/18 08:44 Dose: 0.5 mg Artificial Tears (Tears Naturale) 0 drop EA EYE PRN PRN PRN Reason: Dry Eyes Aspirin (Aspirin) 325 mg PO DAILY [facility] Last Admin: 05/19/18 08:39 Dose: 325 mg Bisacodyl (Dulcolax) 10 mg [place] DAILYPRN PRN PRN Reason: Constipation Calcium Carbonate (Tums) 1,000 mg PO Q4H PRN PRN Reason: Heartburn or Indigestion Last Admin: 05/18/18 15:45 Dose: 1,000 mg Carvedilol (Coreg) 12.5 mg PO BID [facility] Last Admin: 05/19/18 08:38 Dose: 12.5 mg Citalopram Hydrobromide (Celexa) 20 mg PO DAILY [facility] Last Admin: 05/19/18 08:44 Dose: 20 mg Cyclobenzaprine HCl (Flexeril) 10 mg PO ONE PRN PRN Reason: Muscle Pain Stop: 05/21/18 15:41 Last Admin: 05/18/18 20:02 Dose: 10 mg Dextrose/Water (Dextrose 50%) 25 gm SLOW IVP PRN PRN PRN Reason: Hypoglycemia Donepezil HCl (Aricept) 5 mg PO HS [facility] Last Admin: 05/18/18 20:03 Dose: 5 mg Enalapril Maleate (Vasotec) 2.5 mg PO DAILY [facility] Last Admin: 05/19/18 09:50 Dose: 2.5 mg Famotidine (Pepcid) 20 mg PO BID [facility] Last Admin: 05/19/18 08:39 Dose: 20 mg Furosemide (Lasix) 40 mg PO 0900,1400 [facility] Last Admin: 05/19/18 08:38 Dose: 40 mg Glucagon (Glucagon) 1 mg IM PRN PRN PRN Reason: Hypoglycemia Guaifenesin (Robitussin Sf) 200 mg PO Q4H PRN PRN Reason: Cough Heparin Sodium (Porcine) (Heparin) 5,000 units SC BID [facility] Last Admin: 05/19/18 08:52 Dose: Not Given Hydralazine HCl (Apresoline) 10 mg SLOW IVP Q4H PRN PRN Reason: Systolic BP > 180 Hydroxyzine HCl (Atarax) 25 mg PO Q12H PRN PRN Reason: Itching Last Admin: 05/17/18 17:31 Dose: 25 mg Ceftriaxone Sodium 1 gm/ (Sodium Chloride) 100 mls @ 200 mls/hr IVPB 1300 [facility] Last Admin: 05/19/18 12:19 Dose: 100 mls Dextrose/Water (D5w) 1,000 mls @ 0 mls/hr IV .Q0M PRN PRN Reason: Hypoglycemia Insulin Human Lispro (Humalog) 0 units SC .MODERATE SLIDING SC PRN PRN Reason: Moderate Correctional Scale Last Admin: 05/19/18 12:20 Dose: 6 unit Insulin Human Lispro (Humalog) 0 units [place] .BEDTIME SLIDING SC PRN PRN Reason: Bedtime Correctional Scale Last Admin: 05/16/18 20:21 Dose: 3 unit Ketorolac Tromethamine (Toradol) 15 mg IVP Q6H PRN PRN Reason: Pain Stop: 05/21/18 17:37 Last Admin: 05/18/18 14:23 Dose: 15 mg Loperamide HCl (Imodium) 2 mg PO PRN PRN PRN Reason: Diarrhea/Loose Stools Loratadine (Claritin) 10 mg PO DAILYPRN PRN PRN Reason: Sinus Symptoms Last Admin: 05/16/18 20:21 Dose: 10 mg Magnesium Hydroxide (Milk Of Magnesium) 30 ml PO BIDPRN PRN PRN Reason: Constipation Mineral Oil/White Petrolatum (Eucerin Cream) 0 gm TOP BIDPRN PRN PRN Reason: Dry Skin Ondansetron HCl (Zofran Odt) 4 mg PO Q6H PRN PRN Reason: Nausea/Vomiting Ondansetron HCl (Zofran) 4 mg IVP Q6H PRN PRN Reason: Nausea/Vomiting Phenol (Chloraseptic [place] 180 Ml Bot) 0 ml PO PRN PRN PRN Reason: Sore Throat Polyethylene Glycol (Miralax) 17 gm PO DAILY [facility] Polyethylene Glycol (Miralax) 17 gm PO NOW [facility] Stop: 05/19/18 14:15 Last Admin: 05/19/18 12:19 Dose: 17 gm Primidone (Mysoline) 50 mg PO BID [facility] Last Admin: 05/19/18 08:39 Dose: 50 mg Saccharomyces Boulardii (Florastor) 250 mg PO DAILY [facility] Last Admin: 05/19/18 08:39 Dose: 250 mg Senna/Docusate Sodium (Senokot S) 2 tab PO BID PRN PRN Reason: Constipation Last Admin: 05/18/18 17:46 Dose: 2 tab Sodium Chloride ([place] Nasal Monitor 0.65%) 0 ml EA NARE QIDPRN PRN PRN Reason: Nasal Congestion Zolpidem Tartrate (Ambien) 5 mg PO HSPRN PRN PRN Reason: Insomnia
[2018-05-19] MEDS: Acetaminophen 325 MG TAB PO PRN (20:02)
[2018-05-19] MEDS: Donepezil HCl 5 MG TAB PO SCH (20:03)
[2018-05-20] MEDS: Ketorolac Tromethamine 30 MG/ML VIAL IVP PRN ×2 (01:10→08:30)
[2018-05-20] MEDS: Citalopram 20 MG TAB PO SCH (08:29)
[2018-05-20] MEDS: Aspirin 325 MG TAB PO SCH (08:29)
[2018-05-20] MEDS: Saccharomyces boulardii 250 MG CAP PO SCH (08:29)
[2018-05-20] MEDS: Primidone 50 MG TAB PO SCH ×2 (08:29→20:34)
[2018-05-20] MEDS: Famotidine 20 MG TAB PO SCH ×2 (08:29→20:35)
[2018-05-20] MEDS: Carvedilol 6.25 MG TAB PO SCH ×2 (08:30→20:35)
[2018-05-20] MEDS: Heparin 5,000 UNITS/ML VIAL SC SCH ×2 (08:32→20:35)
[2018-05-20] MEDS: Polyethylene Glycol 3350 17 GM Packet PO SCH (08:36)
[2018-05-20] MEDS: Furosemide 40 MG TAB PO SCH ×2 (08:37→13:27)
[2018-05-20 10:54] LABS: Anion Gap 11 mmol/L (10-20); BUN (Urea Nitrogen) 23 mg/dL (9.8-20.1); Calc. Creatinine Clearance 46 mL/min (70-130); Calcium 9.6 mg/dL (7.8-10.44); Carbon Dioxide 28 mmol/L (23-31); Chloride 102 mmol/L (98-107); Estimated GFR-MDRD 42; Glucose 247 mg/dL (83-110); Potassium 3.8 mmol/L (3.5-5.1); Sodium 137 mmol/L (136-145)
[2018-05-20] MEDS: HumaLOG 300 UNITS/3 ML VIAL SC PRN ×2 (11:37→22:34)
[2018-05-20] MEDS: Acetaminophen 325 MG TAB PO PRN ×2 (11:41→20:35)
[2018-05-20] MEDS: cefTRIAXone\\ROCEPHIN 1 GM in Sodium Chloride 0.9% 100 ML IVPB SCH (13:24)
[2018-05-20] MEDS ORDERED: Bisacodyl 5 MG TAB PO SCH (14:00)
[2018-05-20] MEDS ORDERED: Cefdinir 300 MG CAP PO SCH (14:00)
[2018-05-20] MEDS: Cefdinir 300 MG CAP PO SCH ×2 (14:47→20:35)
--- NOTE | 2018-05-20 15:13 | PQF ---
CLINICAL DOCUMENTATION IMPROVEMENT CLARIFICATION FORM: ICD-10 Updated PLEASE DO AN ADDENDUM TO THE PROGRESS NOTE WITH ANY DOCUMENTATION UPDATES OR ADDITIONS AND CARRY THROUGH TO DC SUMMARY. THANK YOU. DATE: 05/20/18 ATTN: DR. WILSON Please exercise your independent, professional judgment in responding to the clarification form. Clinical indicators are provided on the bottom of this form for your review Please check appropriate box(s) to clarify if the following diagnosis has been ruled in or ruled out: SEPSIS [ x ] Ruled in diagnosis [ ] Continue to treat [ ] Resolved [ ] Ruled out diagnosis [ ] Cannot rule out diagnosis [ ] Other diagnosis [ ] Unable to determine In addition, please specify: Present on Admission (POA): [ x] Yes [ ] No [ ] Unable to determine For continuity of documentation, please document condition throughout progress notes and discharge summary. Thank You. CLINICAL INDICATORS - SIGNS / SYMPTOMS / LABS H&P: "SEPSIS" PROGRESS NOTE 05/17: "SEPSIS" TEMP 05/17: 96.6 "WEAKNESS AND DELAYED RESPONSE" PER H&P RISKS: UTI (PROGRESS NOTES 05/18, 05/19) H/O FREQUENT UTIs TREATMENT: IV ROCEPHIN (ER-05/17) OMNICEF (STARTED 05/20) URINE CULTURES [employer] Win[employer] (This form is maintained as a part of the permanent medical record) 2014 [employer]. All Rights Reserved [email or web address] Office: [phone] [facility]
--- NOTE | 2018-05-20 17:06 | PDOC.PN ---
- Subjective Encounter Start Date: 05/20/18 Encounter Start Time: 12:30 Subjective: pt up in bed no complains - Objective Resuscitation Status: Resuscitation Status FULL:Full Resuscitation Vital Signs & Weight: Vital Signs (12 hours) Temp Pulse Resp BP BP Pulse Ox 05/20/18 17:00 98.1 F 81 18 183/82 H 96 05/20/18 11:37 171/70 H 05/20/18 11:35 97.5 F L 100 18 181/82 H 97 05/20/18 08:30 171/70 H 05/20/18 08:00 97 05/20/18 07:40 97.7 F 74 18 188/77 H 93 L Weight Weight 171 lb 8.314 oz I&O: 05/19/18 05/20/18 05/21/18 06:59 06:59 06:59 Intake Total 940 1180 480 Balance 940 1180 480 Result Diagrams: 05/17/18 03:50 05/20/18 10:23 Additional Labs: Accuchecks 05/20/18 05/20/18 05/20/18 16:42 10:58 05:16 POC Glucose 188 H 230 H 176 H 05/19/18 20:45 POC Glucose 189 H Phys Exam - Physical Examination Neck: no nodes, no JVD, supple, full ROM Respiratory: no wheezing, no rales, no rhonchi, wheezing present, clear to auscultation bilateral Cardiovascular: RRR, no significant murmur, no rub, gallop, irregular Gastrointestinal: soft, non-tender, no distention, positive bowel sounds Musculoskeletal: no edema, pulses present, edema present Dx/Plan (1) UTI (urinary tract infection) Status: Acute (2) Weakness generalized Code(s): R53.1 - WEAKNESS Status: Acute (3) CAD (coronary artery disease) Code(s): I25.10 - ATHSCL HEART DISEASE OF [place] CORONARY ARTERY W/O ANG PCTRS Status: Chronic - Plan will change abx to po -: echo done not read. Nurse called and paged cardiology -: pt to go home with home health * . Review of Systems - Review of Systems Respiratory: negative: Cough, Dry, Shortness of Breath, Hemoptysis, SOB with Excertion, Pleuritic Pain, Sputum, Wheezing Cardiovascular: negative: chest pain, palpitations, orthopnea, paroxysmal nocturnal dyspnea, edema, light headedness, other Gastrointestinal: negative: Nausea, Vomiting, Abdominal Pain, Diarrhea, Constipation, Melena, Hematochezia, Other Genitourinary: negative: Dysuria, Frequency, Incontinence, Hematuria, Retention , Other - Medications/Allergies Allergies/Adverse Reactions: Allergies Allergy/AdvReac Type Severity Reaction Status Date / Time codeine Allergy Verified 05/16/18 16:16 hydrocodone [Hydrocodone] Allergy Verified 05/16/18 16:16 lidocaine Allergy Verified 05/16/18 16:16 [id number] Reductase Allergy Verified 05/16/18 16:16 Inhibitor tramadol Allergy Verified 05/16/18 16:16 Medications: Current Medications Acetaminophen (Tylenol) 650 mg PO Q4H PRN PRN Reason: Headache/Fever/Mild Pain (1-3) Last Admin: 05/20/18 11:41 Dose: 650 mg Alprazolam (Xanax) 0.5 mg PO TIDPRN PRN PRN Reason: Anxiety Last Admin: 05/19/18 20:03 Dose: 0.5 mg Artificial Tears (Tears Naturale) 0 drop EA EYE PRN PRN PRN Reason: Dry Eyes Aspirin (Aspirin) 325 mg PO DAILY [facility] Last Admin: 05/20/18 08:29 Dose: 325 mg Bisacodyl (Dulcolax) 10 mg RI DAILYPRN PRN PRN Reason: Constipation Calcium Carbonate (Tums) 1,000 mg PO Q4H PRN PRN Reason: Heartburn or Indigestion Last Admin: 05/18/18 15:45 Dose: 1,000 mg Carvedilol (Coreg) 12.5 mg PO BID [facility] Last Admin: 05/20/18 08:30 Dose: 12.5 mg Cefdinir (Omnicef) 300 mg PO BID [facility] Last Admin: 05/20/18 14:47 Dose: 300 mg Citalopram Hydrobromide (Celexa) 20 mg PO DAILY [facility] Last Admin: 05/20/18 08:29 Dose: 20 mg Cyclobenzaprine HCl (Flexeril) 10 mg PO ONE PRN PRN Reason: Muscle Pain Stop: 05/21/18 15:41 Last Admin: 05/18/18 20:02 Dose: 10 mg Dextrose/Water (Dextrose 50%) 25 gm SLOW IVP PRN PRN PRN Reason: Hypoglycemia Donepezil HCl (Aricept) 5 mg PO HS [facility] Last Admin: 05/19/18 20:03 Dose: 5 mg Enalapril Maleate (Vasotec) 2.5 mg PO DAILY [facility] Last Admin: 05/20/18 11:37 Dose: 2.5 mg Famotidine (Pepcid) 20 mg PO BID [facility] Last Admin: 05/20/18 08:29 Dose: 20 mg Furosemide (Lasix) 40 mg PO 0900,1400 [facility] Last Admin: 05/20/18 13:27 Dose: 40 mg Glucagon (Glucagon) 1 mg IM PRN PRN PRN Reason: Hypoglycemia Guaifenesin (Robitussin Sf) 200 mg PO Q4H PRN PRN Reason: Cough Heparin Sodium (Porcine) (Heparin) 5,000 units SC BID [facility] Last Admin: 05/20/18 08:32 Dose: 5,000 units Hydralazine HCl (Apresoline) 10 mg SLOW IVP Q4H PRN PRN Reason: Systolic BP > 180 Hydroxyzine HCl (Atarax) 25 mg PO Q12H PRN PRN Reason: Itching Last Admin: 05/17/18 17:31 Dose: 25 mg Dextrose/Water (D5w) 1,000 mls @ 0 mls/hr IV .Q0M PRN PRN Reason: Hypoglycemia Insulin Human Lispro (Humalog) 0 units SC .MODERATE SLIDING SC PRN PRN Reason: Moderate Correctional Scale Last Admin: 05/20/18 11:37 Dose: 4 unit Insulin Human Lispro (Humalog) 0 units SC .BEDTIME SLIDING SC PRN PRN Reason: Bedtime Correctional Scale Last Admin: 05/16/18 20:21 Dose: 3 unit Ketorolac Tromethamine (Toradol) 15 mg IVP Q6H PRN PRN Reason: Pain Stop: 05/21/18 17:37 Last Admin: 05/20/18 08:30 Dose: 15 mg Loperamide HCl (Imodium) 2 mg PO PRN PRN PRN Reason: Diarrhea/Loose Stools Loratadine (Claritin) 10 mg PO DAILYPRN PRN PRN Reason: Sinus Symptoms Last Admin: 05/16/18 20:21 Dose: 10 mg Magnesium Hydroxide (Milk Of Magnesium) 30 ml PO BIDPRN PRN PRN Reason: Constipation Last Admin: 05/20/18 08:36 Dose: 30 ml Mineral Oil/White Petrolatum (Eucerin Cream) 0 gm TOP BIDPRN PRN PRN Reason: Dry Skin Ondansetron HCl (Zofran Odt) 4 mg PO Q6H PRN PRN Reason: Nausea/Vomiting Ondansetron HCl (Zofran) 4 mg IVP Q6H PRN PRN Reason: Nausea/Vomiting Phenol (Chloraseptic [place] 180 Ml Bot) 0 ml PO PRN PRN PRN Reason: Sore Throat Polyethylene Glycol (Miralax) 17 gm PO DAILY [facility] Last Admin: 05/20/18 08:36 Dose: 17 gm Primidone (Mysoline) 50 mg PO BID [facility] Last Admin: 05/20/18 08:29 Dose: 50 mg Saccharomyces Boulardii (Florastor) 250 mg PO DAILY [facility] Last Admin: 05/20/18 08:29 Dose: 250 mg Senna/Docusate Sodium (Senokot S) 2 tab PO BID PRN PRN Reason: Constipation Last Admin: 05/18/18 17:46 Dose: 2 tab Sodium Chloride (Bracey Nasal [place] 0.65%) 0 ml EA NARE QIDPRN PRN PRN Reason: Nasal Congestion Zolpidem Tartrate (Ambien) 5 mg PO HSPRN PRN PRN Reason: Insomnia
[2018-05-20] MEDS: Donepezil HCl 5 MG TAB PO SCH (20:34)
[2018-05-20] MEDS: ALPRAZolam 0.5 MG TAB PO PRN (20:35)
[2018-05-21] MEDS: Aspirin 325 MG TAB PO SCH (07:35)
[2018-05-21] MEDS: Saccharomyces boulardii 250 MG CAP PO SCH (07:35)
[2018-05-21] MEDS: Acetaminophen 325 MG TAB PO PRN (07:35)
[2018-05-21] MEDS: Furosemide 40 MG TAB PO SCH (07:35)
[2018-05-21] MEDS: Cefdinir 300 MG CAP PO SCH (07:35)
[2018-05-21] MEDS: Primidone 50 MG TAB PO SCH (07:35)
[2018-05-21] MEDS: Carvedilol 6.25 MG TAB PO SCH (07:35)
[2018-05-21] MEDS: Famotidine 20 MG TAB PO SCH (07:36)
[2018-05-21] MEDS: Citalopram 20 MG TAB PO SCH (07:36)
[2018-05-21 07:41] VITALS: TEMP 98.1
[2018-05-21] MEDS: Heparin 5,000 UNITS/ML VIAL SC SCH (07:42)
[2018-05-21 07:49] VITALS: BP 163/75
[2018-05-21] MEDS: Polyethylene Glycol 3350 17 GM Packet PO SCH (07:49)
--- NOTE | 2018-05-21 14:57 | DIS ---
DATE OF ADMISSION: 05/16/2018 DATE OF DISCHARGE: 05/21/2018 DISCHARGE DIAGNOSES: As of the following, 1. Sepsis. 2. Urinary tract infection. 3. Generalized weakness. 4. Coronary artery disease. HOSPITAL COURSE: The patient is a very pleasant 77-year-old female who initially presented to the [facility] with complaints of generalized weakness. The patient in the ER, underwent a CT thoracolumbar spine that did not show any abnormalities. She did have a significant urinary tract infection with p ositive nitrites. At this time, she was treated initially with ceftriaxone. Her culture indicated E . coli which was sensitive to the cephalosporins, but was resistant to the fluoroquinolones. The pat ient continued to improve throughout the hospital stay. She did have an echocardiogram which indicat ed an EF of 45%-50%; however, I do not have a prior one for comparison. She does have a diastolic dy sfunction. She did have indicated the pacemaker leads in the right cavity and had mild to moderate m itral regurgitation. No significant acute abnormalities that required further intervention. I did s peak with the patient's who stated that she used to see Dr. Tracy and I will recommend fol low up with Dr. Tracy as an outpatient to make sure that her EF is the same versus has it been dec lining. Again, I do not have a previous echocardiogram for comparison. I do think she needs to be i n the hospital for that since she is recovered really well. PHYSICAL EXAMINATION: VITAL SIGNS: Temperature 98.1, 73, 16, 95% on room air, blood pressure is 163/75. GENERAL: She is awake, alert, oriented x3, does not appear in distress. CARDIOVASCULAR: S1, S2 present. No murmurs, rubs or gallops. ABDOMEN: Soft, nontender. Bowel sounds are present x2. EXTREMITIES: No edema. Pedal pulses are present x2. HOME MEDICATIONS: As of the following: She is going to be on cefdinir 300 mg b.i.d., Coreg but have bumped up the dose to 25 b.i.d. because her blood pressure has been running a little bit high. She is on Vasotec 2.5 daily, I will increase that dose also. Lasix 40 mg b.i.d. She is on Vistaril 25 t .i.d. She is also on citalopram 20 mg daily and aspirin 325 daily and insulin and NovoLog 6 units t. i.d. and 64 units daily, and Xanax 0.5 t.i.d., and she is on Aricept 5 mg daily. Again, she will follow up with her primary and Dr. Tracy and this was discussed with the patient's who is at the bedside.
== END 2018-05-21 10:54 | disposition home or self-care (01) | DRG 872 ==
LOC: ERS 08:47 → T4-B 16:06
PROVIDERS: ADMIT Internal Medicine; ATTEND Internal Medicine
DX: A41.51 Sepsis due to Escherichia coli [E. coli] (principal); I50.22 Chronic systolic (congestive) heart failure; I42.9 Cardiomyopathy, unspecified; N10 Acute pyelonephritis; I11.0 Hypertensive heart disease with heart failure; Z86.718 Personal history of other venous thrombosis and embolism; E11.9 Type 2 diabetes mellitus without complications; F41.9 Anxiety disorder, unspecified; Z88.5 Allergy status to narcotic agent; Z88.8 Allergy status to other drugs, medicaments and biological substances; Z79.899 Other long term (current) drug therapy; Z79.4 Long term (current) use of insulin; Z95.810 Presence of automatic (implantable) cardiac defibrillator; Z86.73 Personal history of transient ischemic attack (TIA), and cerebral infarction without residual deficits; E78.5 Hyperlipidemia, unspecified; Z95.1 Presence of aortocoronary bypass graft; D69.6 Thrombocytopenia, unspecified; I25.10 Atherosclerotic heart disease of native coronary artery without angina pectoris; I34.0 Nonrheumatic mitral (valve) insufficiency; R53.1 Weakness; F03.90 Unspecified dementia, unspecified severity, without behavioral disturbance, psychotic disturbance, mood disturbance, and anxiety; G25.0 Essential tremor
CPT/HCPCS: 36415; 36416; 71045; 72072; 72100; 80048; 80053; 81003; 81015; 82553; 84484; 85025; 87077; 87086; 87186; 93005; 93306; 96374; 96375; G8978-GP-CK; G8979-GP-CK; G8980-GP-CK; G8987-GO-CK; G8988-GO-CJ; J0360; J0696; J1644; J1885; J7050

== ENCOUNTER 2018-12-10 11:13 | Day surgery (SDC) | payer MEDICARE, OTHER ==
[2018-12-09 13:01] VITALS: BMI 28.8
[2018-12-10] MEDS ORDERED: Ketamine 50 MG/ML (10ML VIAL) ONE (13:49)
[2018-12-10] MEDS ORDERED: PROPOFOL 200 MG/20 ML VIAL ONE (14:31)
--- NOTE | 2018-12-10 16:50 | OP ---
DATE OF PROCEDURE: 12/10/2018 PRIMARY CARE PHYSICIAN: Gomez Reyna MD TITLE OF PROCEDURES: Esophagogastroduodenoscopy with biopsy. PREPROCEDURE DIAGNOSES: 1. Meal associated abdominal pain. 2. History of diabetes. POSTPROCEDURE DIAGNOSES: 1. Exam to second portion of duodenum. 2. A 2 cm hiatal hernia extending from 33 cm to 35 cm from the incisors. 3. Grade A esophagitis, biopsied. 4. Erosive gastritis of the antrum associated with superficial ulcers, biopsied. 5. Duodenitis with small superficial ulcers. 6. Duodenal bulb polyp, biopsied, not removed due to the patient's recent aspirin usage. ANESTHESIA: Total intravenous anesthesia by Dr. Brent Way. DESCRIPTION OF PROCEDURE: Written informed consent was obtained. The patient was brought to the endoscopy suite. Total intravenous anesthesia was administered. The patient was placed in the left lateral decubitus position. A bite block was inserted into the mouth. A Pentax video diagnostic gastroscope was introduced into the oral cavity and the esophagus was carefully intubated. The gastroscope was advanced under direct visualization to the second portion of the duodenum. Endoscopic findings revealed a 2 cm sliding hiatal hernia. Mild, grade A distal esophagitis was identified and biopsied for histology. There was no evidence of esophageal ulcer or varices. The stomach was entered and carefully examined. This included a retroflexed view of the cardia, which again demonstrated a hiatal hernia. The gastric mucosa demonstrated mild diffuse erythema and scattered subepithelial petechiae especially in the body. In the gastric antrum, a moderate erosive gastritis was identified and biopsied. Two small 1 to 2 mm superficial ulcers were also seen. Subepithelial petechiae were also prominent in this area. The duodenum from the bulb to the second portion was then inspected. Mild erosive duodenitis involving the duodenal bulb was noted. A small 2 mm superficial ulcer that was bland in appearance was also noted. A bilobed sessile polyp that was approximately 9 to 10 mm in diameter was noted in the anterior aspect of the bulb. It was not removed due to patient's recent history of aspirin use. Biopsies were obtained. The post bulbar duodenum appeared unremarkable. The stomach was decompressed as the endoscope was removed from the patient. She was transferred to the Day Stay Surgery area for postprocedure monitoring. There were no immediate complications. RECOMMENDATIONS: 1. Await pathology results. 2. Ask the patient to call me in 1 week for pathology results. 3. Follow up with me or my PA in GI clinic in 3 to 4 weeks. 4. Initiate omeprazole 20 mg p.o. daily for 6 to 8 weeks. Job ID: [id number]
== END 2018-12-10 15:23 | disposition home or self-care (01) ==
LOC: SDC 11:13
PROVIDERS: ATTEND Internal Medicine Gastroenterology
PROC: 0DB98ZX Excision of Duodenum, Via Natural or Artificial Opening Endoscopic, Diagnostic (ICD-10-PCS; principal; 2018-12-10)
PROC: 0DB78ZX Excision of Stomach, Pylorus, Via Natural or Artificial Opening Endoscopic, Diagnostic (ICD-10-PCS; 2018-12-10)
PROC: 0DB58ZX Excision of Esophagus, Via Natural or Artificial Opening Endoscopic, Diagnostic (ICD-10-PCS; 2018-12-10)
DX: K31.7 Polyp of stomach and duodenum (principal); K20.8 Other esophagitis; K29.60 Other gastritis without bleeding; K25.9 Gastric ulcer, unspecified as acute or chronic, without hemorrhage or perforation; K29.80 Duodenitis without bleeding; K26.9 Duodenal ulcer, unspecified as acute or chronic, without hemorrhage or perforation; K44.9 Diaphragmatic hernia without obstruction or gangrene; I25.10 Atherosclerotic heart disease of native coronary artery without angina pectoris; I10 Essential (primary) hypertension; E78.5 Hyperlipidemia, unspecified; K21.9 Gastro-esophageal reflux disease without esophagitis; M19.90 Unspecified osteoarthritis, unspecified site; G89.29 Other chronic pain; M54.9 Dorsalgia, unspecified; F41.8 Other specified anxiety disorders; E11.9 Type 2 diabetes mellitus without complications; Z86.718 Personal history of other venous thrombosis and embolism; Z86.73 Personal history of transient ischemic attack (TIA), and cerebral infarction without residual deficits; Z79.2 Long term (current) use of antibiotics; Z79.4 Long term (current) use of insulin; Z79.82 Long term (current) use of aspirin; Z79.899 Other long term (current) drug therapy; Z88.5 Allergy status to narcotic agent; Z88.8 Allergy status to other drugs, medicaments and biological substances; Z95.810 Presence of automatic (implantable) cardiac defibrillator
CPT/HCPCS: 36416; 88305; 88312; 88313; J2704

== ENCOUNTER 2020-08-01 00:42 | Emergency (ER) | payer MEDICARE, OTHER ==
[2020-08-01] MEDS ORDERED: Boostrix 0.5 ML (Tdap) VIAL ONE (01:29)
[2020-08-01] MEDS ORDERED: Bacitracin 1 PK ONE (01:37)
--- NOTE | 2020-08-01 09:06 | RAD ---
Exam:3 views left shoulder HISTORY: Fall. Pain. COMPARISON: None FINDINGS: There is a nondisplaced, slightly impacted right humeral neck fracture. There is associated soft tissue swelling. IMPRESSION: Left humeral neck fracture with associated soft tissue swelling. Results study discussed with Dr. Barone 08/01/2020 at 9:04 AM Code CR
== END 2020-08-01 01:40 | disposition home or self-care (01) ==
LOC: ERS 00:42
DX: S42.295A Other nondisplaced fracture of upper end of left humerus, initial encounter for closed fracture (principal); W10.8XXA Fall (on) (from) other stairs and steps, initial encounter; E11.9 Type 2 diabetes mellitus without complications; Z86.73 Personal history of transient ischemic attack (TIA), and cerebral infarction without residual deficits; I50.9 Heart failure, unspecified; E78.5 Hyperlipidemia, unspecified; E78.00 Pure hypercholesterolemia, unspecified; I10 Essential (primary) hypertension
CPT/HCPCS: 90471; 90715; 94760